=== PATIENT | female | born 1980 | race Caucasian/White ===

== ENCOUNTER 2020-11-14 16:56 | Outpatient (REF) | payer OTHER, SELFPAY | END 2020-11-14 16:57 | disposition home or self-care (01) | LOC: LBN 16:56 | PROVIDERS: PCP Family Medicine; Visit Provider Nurse Practitioner Family | DX: R35.0 Frequency of micturition (principal) | CPT/HCPCS: 87077; 87086; 87186 ==

== ENCOUNTER 2021-06-21 08:42 | Outpatient (CLI) | payer OTHER, SELFPAY ==
[2021-06-21 10:29] VITALS: BP 110/68; PULSE 78; RESP 14; TEMP 36.7; O2SAT 96
[2021-06-21 11:20] VITALS: BP 106/70; PULSE 64; RESP 14; TEMP 36.8; O2SAT 99
== END 2021-06-21 08:43 | disposition home or self-care (01) ==
LOC: INF 08:44
PROVIDERS: PCP Family Medicine; Visit Provider Family Medicine
DX: U07.1 COVID-19 (principal)
CPT/HCPCS: 96365; 96374; Q0222

== ENCOUNTER 2021-08-26 12:18 | Outpatient (REF) | payer OTHER, SELFPAY ==
--- NOTE | 2021-08-26 11:15 | PAPFT_PTH ---
PATIENT: Noemy Saul LOC: [facility]YS U#:[id number] AGE/SX: 41/F ROOM: RE08/26/[address]: SAMARIA Angela : 1980 BED: DIS: 08/26/2021 SPEC #: [id number] RECD: 08/26/21 12:51 STATUS: GARTH REQ #: [id number] NATASHA: 08/26/21 11:[address]: Staci Tomas DEPT: [facility] Cytology RECD BY: Barbi Subramanian ENTERED: 08/26/21 12:51 SP TYPE: PAPFT OTHR DR: Juana Larsen, PhD SALES DEPARTMENT MANAGER Tissues: 1 - CX/ENDOCX FOR PAP SMEARS Procedures: PAP THIN PREP/[facility] Screening HPV DNA PROBE Comments: [id number]
[2021-08-27 14:44] LABS: Chlamydia Result Negative (Negative); GC Result Negative (Negative)
== END 2021-08-26 12:19 | disposition home or self-care (01) ==
LOC: LBN 12:18
PROVIDERS: PCP Nurse Practitioner; Visit Provider Nurse Practitioner Family
DX: Z11.3 Encounter for screening for infections with a predominantly sexual mode of transmission (principal); Z12.4 Encounter for screening for malignant neoplasm of cervix; Z11.51 Encounter for screening for human papillomavirus (HPV); R87.810 Cervical high risk human papillomavirus (HPV) DNA test positive
CPT/HCPCS: 87491; 87591; 88142; 87624

== ENCOUNTER 2021-08-30 01:36 | Outpatient (CLI) | payer OTHER, SELFPAY ==
[2021-08-30 12:34] LABS: Calculated LDL 100 mg/dL (<100); Cholesterol 183 mg/dL (<200); HDL Cholesterol 61 mg/dL (40-60); Triglyceride 113 mg/dL (<150)
[2021-08-30 16:57] LABS: Hemoglobin A1C 5.1 % (<5.7)
== END 2021-08-30 01:37 | disposition home or self-care (01) ==
LOC: LBO 01:37
PROVIDERS: PCP Nurse Practitioner; Visit Provider Nurse Practitioner
DX: Z00.00 Encounter for general adult medical examination without abnormal findings (principal); Z13.6 Encounter for screening for cardiovascular disorders; Z13.1 Encounter for screening for diabetes mellitus
CPT/HCPCS: 36415; 80061; 83036

== ENCOUNTER → 2021-09-09 01:42 | Outpatient (CLI) | payer OTHER, SELFPAY ==
--- NOTE | 2021-09-09 06:45 | DI.MAMMO_ITS ---
Exam(s) MAMMO SCREENING EXAM: MAMMO SCREENING CLINICAL HISTORY: screening, Z12.39, GENERAL ADULT MEDICAL EXAMINATION, Z00.00 TECHNIQUE: Bilateral full field digital CC and MLO mammographic images were obtained with 3D tomosyn thesis and utilizing computer aided detection (CAD). COMPARISON: None. FINDINGS: Masses/Architectural Distortion: None seen. Microcalcifications: There is a tiny cluster of calcifications in the upper outer quadrant of the lef t breast. Skin Thickening/Nipple Retraction: None. IMPRESSION: 1. Tiny cluster of calcifications in the upper outer quadrant of the left breast. 2. Spot magnification views are requested for further evaluation. BI-RADS Category 0 - Assessment Incomplete: Need additional imaging evaluation Breast Density - Category C - Heterogeneously dense Breast density category C or D implies that the patient has dense breast tissue. Dense breast tissue is very common and is not abnormal but dense breast tissue can make it harder to find cancer on a ma mmogram. Also, dense breast tissue may increase their breast cancer risk. This information about the result of the mammogram report was provided to the patient to raise their awareness. Use this report when you speak with the patient about their risks for breast cancer, which includes their family hist ory. At that time, you may recommend for more screening tests (Ultrasound or MRI) as they might be us eful based on their risk. A negative radiographic report should not delay biopsy if a dominant or clinically suspicious mass is present. Up to ten percent of cancers are not identified on mammography. A negative report may reinforce clinical impression. Adenosis and dense breasts may obscure an underlying neoplasm. False positive reports average 6 to 10%. Patient will receive a letter notifying them of these results.
== END ==
PROVIDERS: PCP Nurse Practitioner; Visit Provider Nurse Practitioner
DX: Z00.00 Encounter for general adult medical examination without abnormal findings (principal); Z12.31 Encounter for screening mammogram for malignant neoplasm of breast; R92.8 Other abnormal and inconclusive findings on diagnostic imaging of breast
CPT/HCPCS: 77063; 77067

== ENCOUNTER → 2021-09-16 02:07 | Outpatient (CLI) | payer OTHER, SELFPAY ==
--- NOTE | 2021-09-16 | DI.MAMMO_ITS ---
Exam(s) MG MAMMO SCREEN CALL BACK UNI EXAM: MAMMO SCREEN CALL BACK UNI -LEFT CLINICAL HISTORY: F/U MAMMO, TINY CLUSTER OF CALCIFICATIONS UOQ LT BREAST. TECHNIQUE: Unilateral spot mammographic images obtained with 2Dand utilizing computer aided detectio n (CAD). . COMPARISON: This additional imaging was performed due to findings described on the recent screening baseline mammogram of 09/09/2021. FINDINGS: Additional mammographic views performed todayreveal this microcalcification group to be somewhat susp icious. Stereotactic biopsy is recommended IMPRESSION: Suspicious microcalcification group in the upper outer quadrant left breast. Appropriate follow-up is stereotactic biopsy. The patient was informed of these findings and recommendations by myself prior to leaving the departm ent today. BI-RADS Category 4 - Suspicious Abnormality: Biopsy should be considered Breast Density - Category C - Heterogeneously dense Breast density Category C or D implies that the patient has dense breast tissue. Dense breast tissue can make it harder to find cancer on a mammogram. Dense breast tissue is also associated with an incr eased risk of breast cancer. This information about the result of the mammogram report was provided to the patient to raise their awareness. Use this report when you speak with the patient about their risks for breast cancer, which includes their family history. At that time, you may recommend additional screening tests (Ultrasoun d or MRI) as these tests may add significant information. A negative radiographic report should not delay biopsy if a dominant or clinically suspicious mass is present. Up to ten percent of cancers are not identified on mammography. A negative report may reinforce clinical impression. Adenosis and dense breasts may obscure an underlying neoplasm. False positive reports average 6 to 10%. Patient will receive a letter notifying them of these results.
== END ==
PROVIDERS: PCP Nurse Practitioner; Visit Provider Nurse Practitioner
DX: Z12.31 Encounter for screening mammogram for malignant neoplasm of breast (principal); R92.8 Other abnormal and inconclusive findings on diagnostic imaging of breast; R92.0 Mammographic microcalcification found on diagnostic imaging of breast
CPT/HCPCS: 77063; 77067

== ENCOUNTER 2021-10-03 14:54 | Outpatient (CLI) | payer OTHER, SELFPAY ==
[2021-10-03 16:35] LABS: ALT 23 U/L (14-59); AST 15 U/L (15-37); Albumin 3.8 g/dL (3.4-5.0); Alkaline Phosphatase 57 U/L (46-116); Anion Gap 9.4 mmol/L (3-11); BUN 13 mg/dL (7-18); Bilirubin, Total 0.5 mg/dL (0.2-1.0); CO2 27.6 mmol/L (21.0-32.0); CREATININE 0.9 mg/dL (0.55-1.02); Calcium 8.8 mg/dL (8.5-10.1); Chloride 104 mmol/L (98-107); Glucose 89 mg/dL (74-106); Potassium 3.6 mmol/L (3.5-5.1); Sodium 141 mmol/L (136-145); Total Protein 7.2 g/dL (6.4-8.2)
== END 2021-10-03 14:55 | disposition home or self-care (01) ==
LOC: LBO 14:54
PROVIDERS: PCP Nurse Practitioner; Visit Provider Surgery
DX: C50.911 Malignant neoplasm of unspecified site of right female breast (principal); Z17.0 Estrogen receptor positive status [ER+]
CPT/HCPCS: 36415; 80053

== ENCOUNTER 2021-10-07 17:45 | Outpatient (CLI) | payer OTHER, SELFPAY ==
[2021-10-07 11:10] LABS: Abs Immature Grans 0.03 10^3/uL (0.0-0.06); Absolute Basophil Count 0.03 10^3/uL (0.0-0.2); Absolute Eosinophil Count 0.08 10^3/uL (0.0-0.7); Absolute Monocyte Count 0.64 10^3/uL (0.1-0.8); Absolute Neutrophil Count 5.49 10^3/uL (1.2-6.7); Basophils % 0.4; HCT 38.2 % (36.0-46.0); HGB 12.8 g/dL (11.2-15.7); Immature Grans % 0.4; Lymphocytes % 20.3; MCH 32.4 pg (27.0-33.0); MCHC 33.5 % (32.0-36.0); MCV 97 fL (80-95); MPV 10.2 fL (8.0-11.0); Monocytes % 8.1; Neutrophils % 69.8; Platelet Count 287 10^3/uL (130-400); RBC 3.95 10^6/uL (3.93-5.22); RDW 11.8 % (11.7-14.6); RDW-SD 41.1 fL; WBC 7.87 10^3/uL (4.4-10.8)
== END 2021-10-07 17:46 | disposition home or self-care (01) ==
LOC: LBO 17:46
PROVIDERS: PCP Nurse Practitioner; Visit Provider Surgery
DX: C50.911 Malignant neoplasm of unspecified site of right female breast (principal); Z17.0 Estrogen receptor positive status [ER+]
CPT/HCPCS: 36415; 85025

== ENCOUNTER 2022-07-25 08:31 | Outpatient (REF) | payer OTHER, SELFPAY | END 2022-07-25 08:32 | disposition home or self-care (01) | LOC: LBN 08:31 | PROVIDERS: PCP Nurse Practitioner Family; Visit Provider Nurse Practitioner Family | DX: R30.0 Dysuria (principal) | CPT/HCPCS: 87086 ==

== ENCOUNTER 2022-09-15 10:54 | Outpatient (REF) | payer OTHER, SELFPAY ==
--- NOTE | 2022-09-15 10:40 | PAPFT_PTH ---
PATIENT: Noemy Saul LOC: DENYS U#:[id number] AGE/SX: 42/F ROOM: RE09/15/[address]: Rosemary Domingo NP : 1980 BED: DIS: 09/15/2022 SPEC #: [id number] RECD: 09/15/22 13:18 STATUS: GARTH [place] #: [id number] NATASHA: 09/15/22 10:[address]: Chayo LY,Rosemary DEPT: [facility] Cytology RECD BY: Barbi Subramanian ENTERED: 09/15/22 13:18 SP TYPE: PAPFT OTHR DR: Ericka Us, AIR BRAKE TESTER Tissues: 1 - CX/ENDOCX FOR PAP SMEARS Procedures: PAP THIN PREP/[facility]VM Screening HPV DNA PROBE Comments: [id number]
== END 2022-09-15 10:55 | disposition home or self-care (01) ==
LOC: LBN 10:54
PROVIDERS: PCP Nurse Practitioner Family; Visit Provider Nurse Practitioner Women's Health
DX: Z12.4 Encounter for screening for malignant neoplasm of cervix (principal); Z11.51 Encounter for screening for human papillomavirus (HPV)
CPT/HCPCS: 88142; 87624

== ENCOUNTER 2022-09-16 08:30 | Day surgery (SDC) | payer OTHER, SELFPAY ==
[2022-09-16 08:45] VITALS: BP 117/86; PULSE 65; RESP 16; TEMP 36.5; O2SAT 98
--- NOTE | 2022-09-16 09:06 | W.ANESPRE ---
General Info Date of Service Date Performed: 09/16/22 Height: 5 ft 3 in Weight: 57.6 kg Body Mass Index (BMI): 22.4 Surgical Procedure: Operation Date: 09/16/22 09:20 Proposed Procedure Side Surgeon aime Gutierrez, Meds Allergies and Home Medications Allergies Allergy/AdvReac Type Severity Reaction Status Date / Time morphine Allergy Severe rash,hives, Verified 09/16/22 08:52 trouble breathing Home Medication Medication Instructions Recorded lorazepam 0.5 mg tablet 0.5 mg PO BID PRN anxiety #30 tabs 11/21/21 tamoxifen 20 mg tablet 20 mg PO DAILY 07/25/22 clindamycin phosphate 1 % topical 1 applic topical BID #60 grams 09/04/22 gel gabapentin 100 mg capsule 300 mg PO QHS 09/11/22 Current Visit Medications: Current Medications Generic Name Dose Route Start Last Admin Trade Name Freq PRN Reason Stop Dose Admin Hyoscyamine Sulfate 0.125 mg 09/16/22 06:28 Hyoscyamine 0.125 Mg Sl/Oral/Chew SL 10/16/22 06:27 DIRECTED PRN Ringer's Solution 1,000 mls @ 80 mls/hr 09/16/22 06:00 IV 10/15/22 23:59 INFUSION [facility] IV Miscellaneous Supplies 1 each 09/16/22 06:00 Iv Access IV 10/15/22 23:59 DIRECTED SPENCER Ondansetron HCl 4 mg 09/16/22 06:28 Ondansetron 4 Mg/2 Ml Vial IVP 10/16/22 06:27 Q4H PRN PRN Nausea / Vomiting Sodium Chloride 0 ml 09/16/22 06:00 Normal Saline Flush 10 Ml Syr IV 10/15/22 23:59 PRN PRN Sodium Chloride 0 ml 09/16/22 06:00 Normal Saline 10 Ml Vial IJ 10/15/22 23:59 DIRECTED PRN Sterile Water 0 ml 09/16/22 06:00 Water,Injection,Sterile 10 Ml Vial IJ 10/15/22 23:59 DIRECTED PRN PFSH Active Problems Active Problems: Problem Status Onset Code Invasive ductal carcinoma of right breast ~08/2021 C50.911 Situational anxiety F41.8 Medical History Medical History Hx of abnormal cervical Pap smear Renal calculi Medical History Comments:: 09/16/22 No BP/IV on RIGHT side Surgical History Surgical History History of bilateral tubal ligation S/P bilateral mastectomy (12/03/21) And breast reconstruction Tobacco Smoking/Tobacco Use Status: Never Passive smoking exposure: No Second hand exposure: No Alcohol Alcohol Intake: current Alcohol intake frequency: a few times a month Alcohol type: hard liquor Substance Use Substance use: Never Substance use type: does not use Prental History History Para 4 Hx # Term Pregnancies Multiple births Hx # Pregnancies Ectopic pregnancies AB induced Hx Number of Living Children AB spontaneous Vital Signs and Lab Results Vital Signs Most Recent Vital Signs in EMR: Most Recent Vital Signs Temp Pulse Resp BP Pulse Ox 36.5 C 65 16 117/86 98 09/16/22 08:45 09/16/22 08:45 09/16/22 08:45 09/16/22 08:45 09/16/22 08:45 Lab Results Blood Type / Crossmatch: No Data to Display Complete Blood Count: No Data to Display Complete Metabolic Panel: No Data to Display Liver Function Panel: No Data to Display Coagulation Panel: No Data to Display Cardiac Panel: No Data to Display Arterial Blood Gas: No Data to Display Venous Blood Gas: No Data to Display Pancreas Panel: No Data to Display Thyroid Panel: No Data to Display Infectious Disease: No Data to Display Blood Cultures: No Data to Display Toxicology Panel: No Data to Display Panel: No Data to Display Anesthesia Assessment and Plan Anesthesia History Personal History: No History of Anesthesia Complications Family History: No Family History of Anesthesia Complications Exercise Tolerance Exercise Tolerance: Metabolic Equivalents>4 Pertinent Negatives Pertinent Negatives: No Symptoms of GERD, No Major Cardiovascular Symptoms or Complaints, No Major Pulmonary Symptoms or Complaints and No History of CVA/TIA Cardiac & Pulmonary Exam Cardiac Exam: Normal S1/S2 Heart Sounds Pulmonary Exam: Clear Bilateral Breath Sounds Implantable Cardiac Device Does patient have a Pacemaker or an ICD?: No Airway Exam Known Difficult Airway: No Mallampati Class: 1 Mouth Opening: Normal (> 3cm) Thyromental Distance: Greater than 3 cm Neck Range of Motion: Full ROM Neck Circumference: Normal Teeth Condition: Normal Dentition ASA Classification ASA Score: ASA 2 Emergency Case?: No NPO Status NPO Status: NPO Clears >2 hours, Solids >8 hours Status Status: Negative HCG Anesthesia Plan Resuscitation Status: Full Code Anesthesia Technique: General Anesthesia Airway Planned: Natural Airway Monitors Used: Standard Monitors
[2022-09-16 09:09] VITALS: BMI 22.4
[2022-09-16] MEDS: Lactated Ringers 1,000 ML 80 ML IV (09:15)
[2022-09-16 10:15] VITALS: BP 115/81; PULSE 69; RESP 16; TEMP 36.2; O2SAT 98
--- NOTE | 2022-09-16 10:29 | W.ANESPOSTOP ---
Postoperative Evaluation Date, Time and Location Date Performed: 09/16/22 Time Performed: 10:30 Patient Location: Day Surgery Unit Vital Signs Most Recent Imported Vital Signs: Most Recent Vital Signs Temp Pulse Resp BP Pulse Ox 36.2 C L 69 16 115/81 98 09/16/22 10:15 09/16/22 10:15 09/16/22 10:15 09/16/22 10:15 09/16/22 10:15 Pain Score Most Recent Pain Score: Most Recent Pain Score Pain Level 0 09/16/22 10:15 Assessment Mental Status: Awake (Alert & Oriented to Patient Baseline) Airway and Respiratory Function: Patent airway with normal (patient baseline) respiratory exam Cardiovascular Function: Hemodynamically Stable Hydration Status: Adequately Hydrated Nausea & Vomiting: No Nausea or Vomiting Pain: Pt. Denies Any Pain Peripheral Nerve Block: Patient did not receive a nerve block
[2022-09-16 10:45] VITALS: BP 122/47; PULSE 57; RESP 18; TEMP 36.7; O2SAT 100
--- NOTE | 2022-09-16 11:07 | W.COLOREPORT ---
Date of service: 09/16/22 Time of Service: 15:36 Colonoscopy Report Date of procedure: 09/16/22 Pre-op diagnosis general: breast ca Post-op diagnosis procedure note: other (ext hemorrhoid ) Surgeon: Christy Gutierrez Anesthesia Type: General:No Airway Estimated blood loss (mL): 0 Pathology: none sent Complications: None Disposition: same day Prep: Miralax/Dulcolax Retraction Time: 13 Procedure Description: After informed consent was obtained the patient was taken to the procedure room and placed in a left decubitous position. Monitors were applied and a time out was done. The patients name, date of , procedure, allergies to medications and metal in their body was reviewed. The patient was then sedated. Once sedated and comfortable a rectal exam was done. External exam shows: x1 external hemorrhoid and external hemorrhoidal tag.. Internal exam revealed a normal sphincter tone and no palpable masses. The scope was then introduced and retrofelexed. No internal hemorrhoids were identified. The scope was then advanced to the cecum without difficulty. The TI and appendiceal orifice were identified. The prep was BBPS 2 in all segments for a total of 6. The scope was then slowly retracted over 13 minutes back into the rectum. There are no polyps, AVMs, or diverticula visualized today. Mucosa is pink and healthy with a normal vascular pattern. The scope was removed and the patient was woken up and taken back to Same day surgery in stable condition. The patient tolerated the procedure well and there were no immediate complications. Follow up: The patient should follow up in 10 years unless they develop changes in bowel habits or other new gastrointestinal complaints.
--- NOTE | 2022-09-16 11:09 | PDOC.DSDIS_ITS ---
Date of service: 09/16/22 Time of Service: 11:09 Discharge Plan Disposition Patient Disposition: Home Condition: Good Discharge Details Reason For Visit: colon scope Attending Provider: Christy Gutierrez Primary Care Provider: Ericka Us Meds and New Rx's Prescriptions: No Action tamoxifen 20 mg tablet 20 mg PO DAILY gabapentin 100 mg capsule 300 mg PO QHS lorazepam 0.5 mg tablet 0.5 mg PO BID PRN (Reason: anxiety) Qty: 30 0RF Rx Instructions: Take 1 tablet twice a day as needed for anxiety clindamycin phosphate 1 % gel 1 applic TP BID Qty: 60 2RF Discharge Instructions Additional Instructions: DSU Colonoscopy Post- Op Instructions Instructions for Everyone who is given Anesthesia: For your safety, please do the following for the next twenty-four (24) hours: *Do Not operate a motor vehicle (car, truck, motorcycle, etc.) *Do Not drink alcoholic beverages or use any recreational drugs for the first 24 hours or while taking pain medications. The medications in your body may have a reaction that can be dangerous. *Do Not make any important decisions or sign any important papers. Findings: Normal Follow up: Repeat in 10 years time 1. No lifting over 20 pounds or strenuous activity for the first 24 hours after your procedure. After 24 hours there are no restrictions on your activity but you may feel fatigued for a few days. 2. After you arrive home you may have a light meal and return to your normal diet as you can tolerate it without feeling sick to your stomach. 3. You may have a bloated, gaseous feeling in your belly (abdomen) after a colonoscopy. Passing gas and belching will help. Walking or lying down on your left side with your knees flexed may relieve the discomfort. Call the office at [phone] (Office) or [phone] (Hospital) right away if you notice any of the following: a.Vomiting of blood or ?coffee ground stools?. b.Rectal bleeding 1Tbsp, blood clots or continuous bleeding. c.Severe belly (abdominal) pain. d.A hard distended belly (abdomen) and an inability to pass gas. 4. Please don?t expect to have a normal BM (bowel movement) for 2-3 days after your procedure. 5. If there are questions regarding the findings of your procedure, please contact your doctor 6. If you are unable to contact your doctor with a problem, contact the hospital at [phone]. 7. Continue all your regular medications unless directed otherwise. I understand the above instructions and have no questions. Signature of Patient or Adult Escort Name of Responsible Adult Escort Signature of Nurse Date/Time Activity:: See above Diet:: See above Discharge Orders Discharge Orders: Discharge Order (Routine); Ordered 09/16/22 Ordered By: Christy Gutierrez DS: Diagnosis Discharge Diagnosis (1) Invasive ductal carcinoma of right breast: Status: Acute Asessment and Plan: The patient is seen and examined after their colonoscopy.? The patient has been able to pass gas.? They are not having abdominal pain.? They have been able to tolerate liquids and a snack.? They do not have any nausea or vomiting.? They are not having any chest pain or shortness of breath.??? They are not having any rectal bleeding. Their vital signs have been stable-see nursing notes. We discussed findings during their colonoscopy, and any biopsies that were done/polyps that were removed. The patient will be sent a letter with any biopsy results, and when to repeat the colonoscopy.-see discharge instructions. Patient was given explicit instructions to follow-up regarding colonoscopy-refer to discharge instructions.? We reviewed resumption of medications. Patient verbalized understanding and discharged in stable and satisfactory condition- See nursing notes. (2) Situational anxiety: Status: Acute
== END 2022-09-16 11:20 | disposition home or self-care (01) ==
PROVIDERS: PCP Nurse Practitioner Family; Visit Provider Surgery
PROC: 0DJD8ZZ Inspection of Lower Intestinal Tract, Via Natural or Artificial Opening Endoscopic (ICD-10-PCS; CPT 45378; principal; 2022-09-16 09:15)
DX: Z12.11 Encounter for screening for malignant neoplasm of colon; K64.4 Residual hemorrhoidal skin tags; C50.911 Malignant neoplasm of unspecified site of right female breast; Z79.899 Other long term (current) drug therapy; F41.8 Other specified anxiety disorders
CPT/HCPCS: 45378; 81025; J2001; J2250; J2405

== ENCOUNTER 2022-11-25 10:04 | Outpatient (CLI) | payer OTHER, SELFPAY ==
[2022-11-25 08:18] LABS: Abs Immature Grans 0.01 10^3/uL (0.0-0.06); Absolute Basophil Count 0.03 10^3/uL (0.0-0.2); Absolute Eosinophil Count 0.12 10^3/uL (0.0-0.7); Absolute Lymphocyte Count 1.91 10^3/uL (1.2-3.4); Absolute Monocyte Count 0.63 10^3/uL (0.1-0.8); Absolute Neutrophil Count 4.22 10^3/uL (1.2-6.7); Basophils % 0.4; Eosinophils % 1.7; HCT 37.8 % (36.0-46.0); HGB 12.9 g/dL (11.2-15.7); Immature Grans % 0.1; Lymphocytes % 27.6; MCH 32.9 pg (27.0-33.0); MCHC 34.1 % (32.0-36.0); MCV 96 fL (80-95); MPV 10.5 fL (8.0-11.0); Monocytes % 9.1; Neutrophils % 61.1; Platelet Count 265 10^3/uL (130-400); RBC 3.92 10^6/uL (3.93-5.22); RDW-SD 42.5 fL; WBC 6.92 10^3/uL (4.4-10.8)
== END 2022-11-25 10:05 | disposition home or self-care (01) ==
LOC: LBO 10:04
PROVIDERS: PCP Nurse Practitioner Family; Visit Provider Obstetrics & Gynecology
DX: Z01.818 Encounter for other preprocedural examination (principal)
CPT/HCPCS: 36415; 86850; 86900; 86901; 85025

== ENCOUNTER 2022-11-26 10:32 | Day surgery (SDC) | payer OTHER, SELFPAY ==
[2022-11-26] VITALS (11 sets, daily range): BP systolic 78–126; BP diastolic 52–81; PULSE 54–76; RESP 14–19; TEMP 36.1–36.8; O2SAT 98–100; BMI 22.9
[2022-11-26] MEDS: Lactated Ringers 1,000 ML 125 ML IV (11:45)
--- NOTE | 2022-11-26 12:57 | W.ANESPRE ---
General Info Date of Service Date Performed: 11/26/22 Height: 5 ft 3 in Weight: 58.7 kg Body Mass Index (BMI): 22.9 Surgical Procedure: Operation Date: 11/26/22 12:55 Proposed Procedure Side Surgeon p Diagnostic Laparoscopy DO gunnar Burdick Salpingectomy Laparoscopic Bilateral DO gunnar Burdick Ovarian Cystectomy Laparoscopic Right Lucia Morrow DO Meds Allergies and Home Medications Allergies Allergy/AdvReac Type Severity Reaction Status Date / Time morphine Allergy Severe rash,hives, Verified 11/26/22 10:49 trouble breathing Home Medication Medication Instructions Recorded tamoxifen 20 mg tablet 20 mg PO DAILY 07/25/22 clindamycin phosphate 1 % topical 1 applic topical BID #60 grams 09/04/22 gel gabapentin 100 mg capsule 300 mg PO QHS 09/11/22 lorazepam 0.5 mg tablet 0.5 mg PO BID PRN anxiety #30 tabs 10/15/22 Current Visit Medications: Current Medications Generic Name Dose Route Start Last Admin Trade Name Freq PRN Reason Stop Dose Admin Ringer's Solution 1,000 mls @ 125 mls/hr 11/26/22 06:00 11/26/22 11:45 IV 12/25/22 23:59 125 mls/hr INFUSION SPENCER Administration IV Miscellaneous Supplies 1 each 11/26/22 06:00 Iv Access IV 12/25/22 23:59 DIRECTED SPENCER Sodium Chloride 0 ml 11/26/22 06:00 Normal Saline Flush 10 Ml Syr IV 12/25/22 23:59 PRN PRN Sodium Chloride 0 ml 11/26/22 06:00 Normal Saline 10 Ml Vial IJ 12/25/22 23:59 DIRECTED PRN Sterile Water 0 ml 11/26/22 06:00 Water,Injection,Sterile 10 Ml Vial IJ 12/25/22 23:59 DIRECTED PRN PFSH Active Problems Active Problems: Problem Status Onset Code Invasive ductal carcinoma of right breast ~08/2021 C50.911 Situational anxiety F41.8 Medical History Medical History Hx of abnormal cervical Pap smear Renal calculi Medical History Comments:: 09/16/22 No BP/IV on RIGHT side PONV Surgical History Surgical History History of bilateral tubal ligation History of colonoscopy (~08/2022) S/P bilateral mastectomy (12/03/21) And breast reconstruction Tobacco Smoking/Tobacco Use Status: Never Passive smoking exposure: No Second hand exposure: No Alcohol Alcohol Intake: current Alcohol intake frequency: a few times a month Alcohol type: hard liquor Substance Use Substance use: Never Substance use type: does not use Prental History History Para 4 Hx # Term Pregnancies Multiple births Hx # Pregnancies Ectopic pregnancies AB induced Hx Number of Living Children AB spontaneous Vital Signs and Lab Results Vital Signs Most Recent Vital Signs in EMR: Most Recent Vital Signs Temp Pulse Resp BP Pulse Ox 36.8 C 56 L 16 126/81 99 11/26/22 10:50 11/26/22 10:50 11/26/22 10:50 11/26/22 10:50 11/26/22 10:50 Point of Care Results Point of Care Results: POC- Test(urine) Negative 11/26/22 11:43 Lab Results Blood Type / Crossmatch: Patient ABO/Rh O Negative 11/25/22 Antibody Screen NEGATIVE 11/25/22 Complete Blood Count: White Blood Count 6.92 10^3/uL (4.4-10.8) 11/25/22 08:10 Red Blood Count 3.92 10^6/uL (3.93-5.22) L 11/25/22 08:10 Hemoglobin 12.9 g/dL (11.2-15.7) 11/25/22 08:10 Hematocrit 37.8 % (36.0-46.0) 11/25/22 08:10 Platelet Count 265 10^3/uL (130-400) 11/25/22 08:10 Complete Metabolic Panel: No Data to Display Liver Function Panel: No Data to Display Coagulation Panel: No Data to Display Cardiac Panel: No Data to Display Arterial Blood Gas: No Data to Display Venous Blood Gas: No Data to Display Pancreas Panel: No Data to Display Thyroid Panel: No Data to Display Infectious Disease: No Data to Display Blood Cultures: No Data to Display Toxicology Panel: No Data to Display Panel: No Data to Display Anesthesia Assessment and Plan Anesthesia History Personal History: PONV Family History: No Family History of Anesthesia Complications Exercise Tolerance Exercise Tolerance: Metabolic Equivalents>4 Cardiac & Pulmonary Exam Cardiac Exam: Normal S1/S2 Heart Sounds Pulmonary Exam: Clear Bilateral Breath Sounds Implantable Cardiac Device Does patient have a Pacemaker or an ICD?: No Airway Exam Known Difficult Airway: No Mallampati Class: 1 Mouth Opening: Normal (> 3cm) Thyromental Distance: Greater than 3 cm Neck Range of Motion: Full ROM Neck Circumference: Normal Teeth Condition: Normal Dentition ASA Classification ASA Score: ASA 2 Emergency Case?: No NPO Status NPO Status: NPO Clears >2 hours, Solids >8 hours Status Status: Negative HCG Anesthesia Plan Resuscitation Status: Full Code Anesthesia Technique: General Anesthesia Airway Planned: Endotracheal Tube Monitors Used: Standard Monitors Preoperative Comments:: 42 yo female for dx lap. Sig PMHx: breast CA, anxiety. never smoker, occ EtOH. Previous Anes: - colo, midaz, ondans, prop, natural airway, no issues. - [facility] breast, LMA 3 - [facility] mastectomy, Mac 3 grade 1, easy mask. extremely sore throat with stretched uvula. Plan: preop AMERICA [place].
[2022-11-26] MEDS: Bupivacaine 0.5% Pres-Free 30 ML VIAL (14:43)
--- NOTE | 2022-11-26 14:51 | FALL_PTH ---
PATIENT: Noemy Saul LOC: DEEP U#:[id number] AGE/SX: 42/F ROOM: RE11/26/[address]: Lucia Morrow DO : 1980 BED: DIS: 11/26/2022 SPEC #: [id number] RECD: 11/26/22 17:17 STATUS: GARTH [facility] #: [id number] NATASHA: 11/26/22 14:[address]: Lucia Morrow DEPT: Surgical Specimen RECD BY: Barbi Subramanian ENTERED: 11/26/22 17:19 SP TYPE: Fall OTHR DR: SAMARIA Nolasco Tissues: 1 - FALLOPIAN TUBE (STERILIZATION) 2 - FALLOPIAN TUBE (STERILIZATION) Procedures: GROSS AND MICRO LEVEL 2 Comments: [id number]
--- NOTE | 2022-11-26 15:19 | PAPNONF_PTH ---
PATIENT: Noemy Saul LOC: DEEP U#:[id number] AGE/SX: 42/F ROOM: RE11/26/[address]: Lucia Morrow DO : 1980 BED: DIS: 11/26/2022 SPEC #: [id number] RECD: 11/26/22 17:35 STATUS: GARTH RE #: [id number] NATASHA: 11/26/22 15:[address]: Lucia Morrow DEPT: [facility] Cytology RECD BY: Barbi Subramanian ENTERED: 11/26/22 17:35 SP TYPE: TADEO SHORT DR: SAMARIA Nolasco Tissues: 1 - BODY FLUID CYTO(NOT S/U/N/EM)[facility] Procedures: BODY FLUID CYTO(NOT SPU/UR/NIP/ENDOM)[facility] Comments: [id number] (TOTAL VOLUME = 10 ml, SENT FRESH) (REFRIGERATED)
--- NOTE | 2022-11-26 15:28 | ROE_ITS ---
Date of service: 11/26/22 Time of Service: 15:28 Operative Note Operative Note DATE OF PROCEDURE: 11/26/22 PRE-OP DIAGNOSIS: Suspicion of right ovarian cyst, undesired fertility POST-OP DIAGNOSIS: other (3 cm right paratubal cyst) PROCEDURE: Operative laparoscopy with bilateral salpingectomy and removal of right paratubal cyst. SURGEON: Lucia Morrow ASSISTING SURGEON: Kavya Duarte ANESTHESIA TYPE: Local By Surgeon and General LMA/ETT Refer to Anesthesia Record ESTIMATED BLOOD LOSS: 5 PATHOLOGY: other (1. Left fallopian tube 2. Right fallopian tube with paratubal cyst 3. Cyst fluid for cytology) COMPLICATIONS: None Patient was transported to: PACU Patient's condition: stable Indications: Persistent simple right adnexal cyst. Undesired fertility. Ovarian cancer risk reduction Findings: Normal-appearing uterus, left fallopian tube. Right fallopian tube with 3 cm simple appearing right paratubal cyst. Normal-appearing ovaries bilaterally. Procedure Description: After full informed consent was attained patient was taken the operating suite with an IV running. General anesthesia was administered after the patient was placed in the dorsal supine position. Patient was then placed in the modified dorsolithotomy position and prepped and draped in the usual sterile fashion. Exam under anesthesia revealed a uterus midline and mobile without evidence of significant adnexal mass. At this point attention was turned to the vaginal vault where a speculum was inserted. A [employer] uterine manipulator was used for intraoperative uterine manipulation. Speculum was then removed. Attention was turned to the abdomen where quarter percent Marcaine was used to infiltrate the umbilical space. A vertical incision was made to accommodate a 10 mm sleeve and trocar. The abdomen was elevated with penetrating towel clips and a varies needle inserted. CO2 gas was used to create a pneumoperitoneum to a maximum pressure of 15 mmHg. Once pneumoperitoneum was created a bladeless 12 mm Visiport was inserted into the abdomen with direct visualization. A second and third right and left lower quadrant trocar site were placed after infiltration with cord percent Marcaine under direct visualization with a 5 mm trocar. This allowed visualization of the entire abdomen and pelvis. All structures appeared benign and atraumatic. The uterus was elevated and visualization of the left fallopian tube undertaken. The left tube and ovary are normal. Visualization of the right tube and ovary revealed a 3 cm right paratubal cyst which appears simple and normal-appearing ovary. At this point, attention was turned again to the left fallopian tube which was elevated and cautery transected. This was removed through the 10 mm port. Similar procedure was carried out on the right fallopian tube with its attached paratubal cyst. This complex was placed into an Endopouch and removed through the anterior abdominal wall. Fluid was removed from the cyst and sent for cytology. At this point, inspection of the pedicles noted hemostasis. The procedure was then terminated. Trocars were removed from the abdomen after CO2 gas was released. The fascial incision was closed using 0 Vicryl suture in the inqwie-dj-bvsny fashion at the umbilicus. The remainder of the incisions were reapproximated with 4-0 undyed Monocryl, Steri-Strips, and sterile dressings were placed. The patient was returned to the dorsal supine position, awoke from anesthesia with ease, and was taken to the postanesthesia care unit. EBL: 5 mL Complications: None apparent Pathology Left: 1. Left fallopian tube 2. Right fallopian tube with paratubal cyst 3. cyst fluid for cytology Fluids: Crystalloid per anesthesia.
[2022-11-26] MEDS: ePHEDrine 25 MG/5 ML Syringe IVP (15:48)
[2022-11-26] MEDS: fentaNYL 100 MCG/2 ML VIAL IVP (16:27)
--- NOTE | 2022-11-26 16:40 | W.ANESPOSTOP ---
Postoperative Evaluation Date, Time and Location Date Performed: 11/26/22 Time Performed: 16:40 Patient Location: PACU Vital Signs Most Recent Imported Vital Signs: Most Recent Vital Signs Temp Pulse Resp BP Pulse Ox 36.4 C L 65 16 102/66 100 11/26/22 16:37 11/26/22 16:37 11/26/22 16:37 11/26/22 16:37 11/26/22 16:37 Pain Score Most Recent Pain Score: Most Recent Pain Score Pain Level 3 11/26/22 16:37 Assessment Mental Status: Awake (Alert & Oriented to Patient Baseline) Airway and Respiratory Function: Patent airway with normal (patient baseline) respiratory exam Cardiovascular Function: Hemodynamically Stable Hydration Status: Adequately Hydrated Nausea & Vomiting: No Nausea or Vomiting Pain: Pain is tolerable per patient Peripheral Nerve Block: Patient did not receive a nerve block
[2022-11-26] MEDS: traMADol 50 MG TAB PO (17:41)
== END 2022-11-26 18:08 | disposition home or self-care (01) ==
PROVIDERS: PCP Nurse Practitioner Family; Visit Provider Obstetrics & Gynecology
PROC: (CPT 58661; 2022-11-26 12:45)
DX: Z30.2 Encounter for sterilization (principal); N83.8 Other noninflammatory disorders of ovary, fallopian tube and broad ligament
CPT/HCPCS: 58661; 58662; 88104; 88302; J0131; J1100; J2250; J2405; J2704; J3010

== ENCOUNTER 2023-04-20 14:02 | Outpatient (REF) | payer OTHER, SELFPAY | END 2023-04-20 14:03 | disposition home or self-care (01) | LOC: LBN 14:02 | PROVIDERS: PCP Nurse Practitioner Family; Visit Provider Nurse Practitioner Family | DX: N76.0 Acute vaginitis (principal) | CPT/HCPCS: 87480; 87510; 87660 ==

== ENCOUNTER 2023-04-20 15:50 | Outpatient (CLI) | payer OTHER, SELFPAY ==
[2023-04-20 14:46] LABS: Abs Immature Grans 0.03 10^3/uL (0.0-0.06); Absolute Basophil Count 0.02 10^3/uL (0.0-0.2); Absolute Eosinophil Count 0.09 10^3/uL (0.0-0.7); Absolute Lymphocyte Count 1.94 10^3/uL (1.2-3.4); Absolute Monocyte Count 0.74 10^3/uL (0.1-0.8); Absolute Neutrophil Count 6.49 10^3/uL (1.2-6.7); Basophils % 0.2; HCT 38.1 % (36.0-46.0); HGB 12.9 g/dL (11.2-15.7); Immature Grans % 0.3; Lymphocytes % 20.8; MCHC 33.9 % (32.0-36.0); MCV 95 fL (80-95); MPV 10.1 fL (8.0-11.0); Monocytes % 7.9; Neutrophils % 69.8; Platelet Count 435 10^3/uL (130-400); RBC 4.03 10^6/uL (3.93-5.22); RDW 11.5 % (11.7-14.6); RDW-SD 39.3 fL; WBC 9.31 10^3/uL (4.4-10.8)
[2023-04-20 15:35] LABS: ALT 21 U/L (14-59); AST 12 U/L (15-37); Albumin 3.4 g/dL (3.4-5.0); Alkaline Phosphatase 42 U/L (46-116); Anion Gap 10.2 mmol/L (3-11); BUN 10 mg/dL (7-18); Bilirubin, Total 0.3 mg/dL (0.2-1.0); CO2 27.8 mmol/L (21.0-32.0); CREATININE 0.9 mg/dL (0.55-1.02); Calcium 9.2 mg/dL (8.5-10.1); Chloride 104 mmol/L (98-107); Estimated GFR 80.34 (mL/min/1.73m2); Glucose 98 mg/dL (74-106); Potassium 3.8 mmol/L (3.5-5.1); Sodium 142 mmol/L (136-145); Total Protein 6.9 g/dL (6.4-8.2)
== END 2023-04-20 15:51 | disposition home or self-care (01) ==
LOC: LBO 15:50
PROVIDERS: PCP Nurse Practitioner Family; Visit Provider Nurse Practitioner Family
DX: R10.9 Unspecified abdominal pain (principal); N76.0 Acute vaginitis; R30.0 Dysuria; R50.9 Fever, unspecified
CPT/HCPCS: 36415; 80053; 85025

== ENCOUNTER 2023-12-01 12:58 | Outpatient (CLI) | payer OTHER, SELFPAY ==
[2023-12-01 11:46] LABS: ALT 22 U/L (14-59); AST 13 U/L (15-37); Albumin 3.4 g/dL (3.4-5.0); Alkaline Phosphatase 50 U/L (46-116); Anion Gap 7.8 mmol/L (3-11); BUN 12 mg/dL (7-18); Bilirubin, Total 0.54 mg/dL (0.2-1.0); CO2 29.2 mmol/L (21.0-32.0); CREATININE 0.9 mg/dL (0.55-1.02); Calcium 8.5 mg/dL (8.5-10.1); Calculated LDL 126 mg/dL (<100); Chloride 103 mmol/L (98-107); Cholesterol 218 mg/dL (<200); Estimated GFR 80.34 (mL/min/1.73m2); Glucose 92 mg/dL (74-106); HDL Cholesterol 78 mg/dL (40-60); Potassium 3.9 mmol/L (3.5-5.1); Sodium 140 mmol/L (136-145); Total Protein 6.8 g/dL (6.4-8.2); Triglyceride 74 mg/dL (<150)
[2023-12-01 19:36] LABS: Hepatitis C Ab w Rflx HCV PCR Negative (Negative)
[2023-12-01 19:44] LABS: HIV-1/2 Ag & Ab Screen Negative (Negative)
== END 2023-12-01 12:59 | disposition home or self-care (01) ==
LOC: LBO 12:58
PROVIDERS: PCP Nurse Practitioner Family; Visit Provider Nurse Practitioner Family
DX: Z00.00 Encounter for general adult medical examination without abnormal findings (principal); R23.2 Flushing; T45.1X5A Adverse effect of antineoplastic and immunosuppressive drugs, initial encounter; Z11.59 Encounter for screening for other viral diseases; Z11.4 Encounter for screening for human immunodeficiency virus [HIV]
CPT/HCPCS: 36415; 80053; 80061; 86803; 87389

== ENCOUNTER 2024-04-28 11:28 | Outpatient (REF) | payer OTHER, SELFPAY ==
--- NOTE | 2024-04-28 11:30 | ENDOMET_PTH ---
PATIENT: Noemy Saul LOC: [facility] U#:[id number] AGE/SX: 44/F ROOM: RE04/28/[address]: Lucia Morrow DO : 1980 BED: DIS: 04/28/2024 SPEC #: [id number] RECD: 04/28/24 13:04 STATUS: GARTH RE #: [id number] NATASHA: 04/28/24 11:[address]: Lucia Morrow DEPT: Surgical Specimen RECD BY: Barbi Subramanian ENTERED: 04/28/24 13:04 SP TYPE: Endomet OTHR DR: SAMARIA Nolasco Tissues: 1 - ENDOMETRIUM BX/AUDRA Procedures: GROSS AND MICRO LEVEL 4 Comments: [id number]
== END 2024-04-28 11:29 | disposition home or self-care (01) ==
LOC: LBN 11:28
PROVIDERS: PCP Nurse Practitioner Family; Visit Provider Obstetrics & Gynecology
DX: N92.0 Excessive and frequent menstruation with regular cycle (principal); D25.9 Leiomyoma of uterus, unspecified; C50.911 Malignant neoplasm of unspecified site of right female breast; N85.00 Endometrial hyperplasia, unspecified
CPT/HCPCS: 88305

== ENCOUNTER 2024-05-15 17:28 | Emergency (ER) | payer OTHER, SELFPAY ==
[2024-05-15 17:36] VITALS: BP 132/71; PULSE 87; RESP 17; TEMP 36.9; O2SAT 100
[2024-05-15 17:39] VITALS: BP 132/71; PULSE 87; RESP 17; TEMP 36.9; O2SAT 100
--- NOTE | 2024-05-15 17:42 | W.ED.GENAD ---
Discharge Plan Disposition Patient Disposition: Home Condition: Good Discharge Details Clinical Impression: URI (upper respiratory infection), Reactive airway disease Primary Care Provider: Ericka Us ED Provider: Fabio Sofia Meds and New Rx's Prescriptions: New albuterol sulfate [Ventolin HFA] 90 mcg/actuation Hfa Aerosol Inhaler 2 puff inhalation Q6H PRN PRNQty: 1 0RF Continued tamoxifen 20 mg tablet 20 mg PO DAILY gabapentin 300 mg capsule 300 mg PO QHS Qty: 90 3RF clindamycin phosphate 1 % gel 1 applic TP BID Qty: 60 2RF escitalopram oxalate 20 mg tablet 20 mg PO DAILY Qty: 90 3RF lorazepam 0.5 mg tablet 0.5 mg PO BID PRN (Reason: anxiety) Qty: 30 0RF Rx Instructions: Take 1 tablet twice a day as needed for anxiety ibuprofen 800 mg tablet 800 mg PO Q8H PRNQty: 60 1RF Discharge Instructions Instructions: Upper Respiratory Infection ED Additional Instructions: You were seen for cough and difficulty breathing/headache all likely stemming from upper respiratory virus. You may use the inhaler with spacer every 6 hours to help with cough and tightness. Try ibuprofen for headache as acetaminophen does not seem to be helping. Rest and drink plenty fluids. Follow-up with primary care next week if not improving. Return to ED for any increased trouble breathing, chest pain, neurologic change, other concerns. Referrals: Ericka Us, [employer] [Primary Care Provider] - [facility] General Mode of arrival: ambulatory. Date/Time Provider Initiated Documentation: 05/15/24 17:42. Limitations to Documentation: no limitations. Information obtained by: patient and RN notes reviewed. HPI Narrative: Patient presents to ED with 5 days of difficulty breathing and cough. She is also having bad headaches. Denies significant sinus congestion. Denies sore throat. She denies any chest pain or abdominal pain. She has had no vomiting. Does not think she has had a fever. Symptoms started out mild but have gotten worse and she feels tight and unable to take a deep breath. She is not a smoker and does not have prior history of asthma. Related Data Home Medications ?Medication ?Instructions ?Recorded ?Confirmed tamoxifen 20 mg tablet 20 mg PO DAILY 07/25/22 05/15/24 lorazepam 0.5 mg tablet 0.5 mg PO BID PRN anxiety #30 tabs 10/15/22 05/15/24 ibuprofen 800 mg tablet 800 mg PO Q8H PRN #60 tabs 11/26/22 05/15/24 clindamycin phosphate 1 % topical 1 applic topical BID #60 grams 10/07/23 05/15/24 gel escitalopram oxalate 20 mg tablet 20 mg PO DAILY #90 tabs 10/07/23 05/15/24 gabapentin 300 mg capsule 300 mg PO QHS #90 caps 10/07/23 05/15/24 albuterol sulfate 90 mcg/actuation 2 puff inhalation Q6H PRN PRN #1 05/15/24 aerosol inhaler (Ventolin HFA) inh Previous Rx's ?Medication ?Instructions ?Recorded lorazepam 0.5 mg tablet 0.5 mg PO BID PRN anxiety #30 tabs 10/15/22 ibuprofen 800 mg tablet 800 mg PO Q8H PRN #60 tabs 11/26/22 clindamycin phosphate 1 % topical 1 applic topical BID #60 grams 10/07/23 gel escitalopram oxalate 20 mg tablet 20 mg PO DAILY #90 tabs 10/07/23 gabapentin 300 mg capsule 300 mg PO QHS #90 caps 10/07/23 albuterol sulfate 90 mcg/actuation 2 puff inhalation Q6H PRN PRN #1 05/15/24 aerosol inhaler (Ventolin HFA) inh Allergies Allergy/AdvReac Type Severity Reaction Status Date / Time morphine Allergy Severe rash,hives, Verified 05/15/24 19:06 trouble breathing General Stated Complaint: RespSymp JUAN: 4 Exam Narrative Exam Narrative: Const: WDWN female in NAD. VS per triage. HEENT: NC/AT. Normal facial exam. Normal OP. Neck: Supple. Trachea midline. Lungs: Normal respiratory effort. Lungs are clear. Cor: RRR without murmur. Good radial pulses. Neuro: A+O x 3. Normal speech, mentation, gait. Cranial nerves II - XII grossly intact. No gross motor or sensory deficit. Course Vital Signs Vital signs: Vital Signs Temperature 98.5 F 05/15/24 17:36 Pulse 87 05/15/24 17:36 Respiratory Rate 17 05/15/24 17:36 Blood Pressure 132/71 05/15/24 17:36 Pulse Oximetry 100 05/15/24 17:36 Temperature 98.5 F 05/15/24 17:39 Temperature Source Temporal Artery Scan 05/15/24 17:39 Pulse 87 05/15/24 17:39 Respiratory Rate 17 05/15/24 17:39 Respiratory Effort Normal 05/15/24 17:40 Respiratory Depth Normal 05/15/24 17:40 Blood Pressure 132/71 05/15/24 17:39 Blood Pressure Position Sitting 05/15/24 17:39 Pulse Oximetry 100 05/15/24 17:39 Oxygen Delivery Method Room Air 05/15/24 17:39 Oxygen Flow Rate 0 05/15/24 17:39 Pain Level 7 05/15/24 17:39 Medical Decision Making Patient presenting to ED with 5 days of URI symptoms with increasing cough and a feeling of shortness of breath and chest tightness. Vital signs and exam are reassuring. No wheezing. Flbxp-rg-pijg flu and COVID obtained. DuoNeb given. IM ketorolac given for headache. Gegnb-xw-ahif testing is negative. Feels that she is able to take a deeper breath after DuoNeb. Headache much improved after Toradol. Had only been using acetaminophen for pain. Recommend trying ibuprofen for her headache. Will provide albuterol inhaler with spacer for presumed reactive airway related to a URI. Follow-up with primary care next week if not improving. Return precautions provided. Lab Data Lab results reviewed: Yes I reviewed the patient's lab results. PFSH All Active Problems (Updated 05/15/24 @ 22:31 by Fabio Sofia MD) Reactive airway disease (Acute) URI (upper respiratory infection) (Acute) Heavy menstrual bleeding (Acute) Hot flashes due to tamoxifen (Chronic) Acne vulgaris (Chronic) Medical History (Updated 05/15/24 @ 22:31 by Fabio Sofia MD) Uterine fibroid Generalized anxiety disorder Invasive ductal carcinoma of right breast (~08/2021) Multicentric, ER+/GA+/HER2-. S/p bilateral mastectomy. Followed by [facility] [place] Renal calculi Hx of abnormal cervical Pap smear Surgical History (Updated 08/12/23 @ 12:25 by Ericka Us NP) S/P breast reconstruction, bilateral (12/03/21) Revision 01/28/23 History of colonoscopy (09/16/22) S/P bilateral mastectomy (12/03/21) History of bilateral tubal ligation Family History (Updated 08/12/23 @ 11:25 by Ericka Us NP) Mother No problems noted. Father , of alcohol induced liver failure Prostate cancer Alcohol use disorder Liver disease Diabetes Brother No problems noted. Daughter Depression Daughter No problems noted. Daughter No problems noted. Daughter No problems noted. Maternal Grandfather No problems noted. Maternal Grandmother Dementia Paternal Grandfather Diabetes Paternal Grandmother Diabetes Social History Smoking/Tobacco Use Status: Never Second Hand Exposure: No Smoking risk assessment performed?: Yes Alcohol Intake: current Alcohol Intake frequency: a few times a month Alcohol type: hard liquor Drug use: Never Substance use type: does not use Household members: spouse, family and children Housing: house Communication Needs: None Do you need help understanding health information?: Never Pets and animals: Yes Pets and animals: dog(s) Sexually active: Yes Do you think of yourself as: straight/heterosexual Current gender identity: female What is your relationship status?: How often do you talk on the phone with friends or family?: once per week How often do you get together with friends or relatives?: once per week How often do you attend latter-day or yazdanism services?: decline to answer Panel score (0-1 are the most socially isolated patients): 1 What type of physical activity do you participate in: walking, other Details: Basketball,Hike and running Duration: 30-45 minutes/day Frequency: 5-6 times per week Do you feel safe at home: Yes Do you feel safe in your relationship?: Yes Female Reproductive History Menstrual control method: permanent sterilization History History Para 4 Hx # Term Pregnancies Multiple births Hx # Pregnancies Ectopic pregnancies AB induced Hx Number of Living Children AB spontaneous
[2024-05-15] MEDS: Ketorolac 30 MG/ML VIAL IM (18:39)
[2024-05-15] MEDS: Albuterol/Ipratropium 3 ML UPD VIAL UPD (18:39)
[2024-05-15] MEDS: Albuterol HFA 8 GM 60 PUFF INH IH (19:09)
[2024-05-15] MEDS: Inhaler, Assist Device 1 EACH MC (19:09)
[2024-05-15 19:30] VITALS: BP 132/71; PULSE 87; RESP 17; TEMP 36.9; O2SAT 100
== END 2024-05-15 19:40 | disposition home or self-care (01) ==
PROVIDERS: Emergency Provider Emergency Medicine; PCP Nurse Practitioner Family
DX: J06.9 Acute upper respiratory infection, unspecified; J45.909 Unspecified asthma, uncomplicated; R51.9 Headache, unspecified
CPT/HCPCS: 87637; 94640; 96372; 99284; 99283; J1885; J7620

== ENCOUNTER 2024-10-13 03:18 | Emergency (ER) | payer OTHER, SELFPAY ==
[2024-10-13 03:20] VITALS: BP 91/57; PULSE 70; RESP 16; TEMP 37.3; O2SAT 98
--- NOTE | 2024-10-13 03:42 | DI.CT_ITS ---
Exam(s) CT LUMBAR SPINE RECONS CT ABDOMEN PELVIS W EXAM: CT ABDOMEN PELVIS W CLINICAL HISTORY: bilateral lower abdominal pain, and lumbar back pa. TECHNIQUE: Imaging Protocol: Axial computed tomography images with coronal and sagittal reformatted images were created and reviewed CONTRAST MATERIAL: Intravenous: Omnipaque 350 Contrast volume:75 chest ml Oral: no COMPARISON: CT CT LUMBAR SPINE RECONS from 10/13/2024 FINDINGS: ABDOMEN and PELVIS: Lung Bases: No acute findings. Liver: Normal density. No suspicious mass. Gallbladder and biliary tract: No radiodense calculus. No wall thickening or pericholecystic fluid. No biliary dilation. Pancreas: Normal density. No abnormal calcifications or inflammatory process. No evidence of mass. Spleen: Normal. Kidneys: Normal size, contour and axis. No radiodense stones. No obstructive uropathy. No suspicious masses seen. Adrenal glands: No masses seen. Vasculature: Abdominal aorta non-dilated. Soft tissues: Unremarkable. Bladder: No gross wall thickening. No calculi.No focal mass. Bowel: No obstruction. No bowel wall thickening. Appendix normal. Peritoneal cavity: Trace free fluid in the pelvis, physiologic.. No focal collection. No mesenteric inflammatory response. No free air. Mild narrowing of the L5-S1 disc space. The remaining disc spaces are maintained. Small central disc protrusion with mild effacement of the anterior CSF space. No neural foraminal narrowing. Bones: Unremarkable for age. No evidence of fracture. The remaining disc spaces are maintained. Reproductive organs: Uterine fibroid. Collapsing follicle of the right ovary. Lymph nodes: No pathologically enlarged lymph nodes. IMPRESSION:: No acute abnormality in the abdomen or pelvis. No acute abnormality in the lumbar spine. Degenerative disc changes with small central disc protrusion at L5-S1. The preliminary [facility] report was reviewed. RADIATION DOSE DELIVERED: 197.39mGy.cm Total DLP DATA REPOSITORY: All CT scans at this facility are submitted to the National Radiology Data Registry (NRDR) Dose Index Registry (DIR) with the [employer] ([employer]). RADIATION OPTIMIZATION: All CT scans at this facility use at least one of these dose optimization techniques: automated exposure control; mA and/or kV adjustment per patient size (includes targeted exams where dose is matched to clinical indication); or iterative reconstruction.
--- NOTE | 2024-10-13 03:47 | W.ED.GENAD ---
Discharge Plan Disposition Patient Disposition: Home Condition: Good Discharge Details Clinical Impression: Ruptured cyst of ovary Primary Care Provider: Ericka Us ED Provider: Jon Henriquez Home Meds and New Rx's Prescriptions: No Action tamoxifen 20 mg tablet 20 mg PO DAILY gabapentin 300 mg capsule 300 mg PO QHS Qty: 90 3RF escitalopram oxalate 20 mg tablet 20 mg PO DAILY Qty: 90 3RF lorazepam 0.5 mg tablet 0.5 mg PO BID PRN (Reason: anxiety) Qty: 30 0RF Rx Instructions: Take 1 tablet twice a day as needed for anxiety clindamycin phosphate 1 % gel 1 applic TP BID Qty: 60 2RF ibuprofen 800 mg tablet 800 mg PO Q8H PRNQty: 60 1RF albuterol sulfate [Ventolin HFA] 90 mcg/actuation Hfa Aerosol Inhaler 2 puff inhalation Q6H PRN PRNQty: 1 0RF Discharge Instructions Instructions: Oxycodone, Ovarian Cyst ED Additional Instructions: At this time it appears that you have had a ruptured ovarian cyst, and in combination with your known fibroids, this is likely causing the symptomatology and pain that you are having. Please use a heating pad to help with your pain, take Tylenol and Motrin every 6 hours. Take the oxycodone tablets that you were given only as needed for breakthrough pain. If you notice any worsening of your symptoms, or any new symptoms such as vomiting, diarrhea, fever, chills, shortness of breath, chest pain, numbness, weakness, or fainting , please return immediately to the emergency department for reevaluation. Please follow up with your primary care provider as soon as possible for reassessment and reevaluation. As always, it was a pleasure participating in your medical care today. Referrals: Ericka Us NP [Primary Care Provider, Medicine] HPI General Date/Time Provider Initiated Documentation: 10/13/24 03:30. HPI Narrative: 44-year-old female with a past medical history of previous Breast cancer with bilateral mastectomy currently on tamoxifen, previous tubal ligation, previous kidney stones, presents today for abdominal pain and back pain. Patient states that about 3 days ago she developed mild back achiness, and bilateral flank pain with the right being worse than the left. It has gradually worsened over the last 72 hours, she has had nausea but no vomiting. No vaginal discharge, no urinary frequency or hematuria. She has taken Tylenol and ibuprofen without any significant improvement. She denies fever or chills. She denies chest pain or shortness of breath. She states that this feels different than previous kidney stones. No other complaints at this time, no other modifying factors. Related Data Home Medications ?Medication ?Instructions ?Recorded ?Confirmed tamoxifen 20 mg tablet 20 mg PO DAILY 07/25/22 10/13/24 lorazepam 0.5 mg tablet 0.5 mg PO BID PRN anxiety #30 tabs 10/15/22 10/13/24 ibuprofen 800 mg tablet 800 mg PO Q8H PRN #60 tabs 11/26/22 10/13/24 escitalopram oxalate 20 mg tablet 20 mg PO DAILY #90 tabs 10/07/23 10/13/24 gabapentin 300 mg capsule 300 mg PO QHS #90 caps 10/07/23 10/13/24 albuterol sulfate 90 mcg/actuation 2 puff inhalation Q6H PRN PRN #1 05/15/24 10/13/24 aerosol inhaler (Ventolin HFA) inh clindamycin phosphate 1 % topical 1 applic topical BID #60 grams 08/24/24 10/13/24 gel Previous Rx's ?Medication ?Instructions ?Recorded lorazepam 0.5 mg tablet 0.5 mg PO BID PRN anxiety #30 tabs 10/15/22 ibuprofen 800 mg tablet 800 mg PO Q8H PRN #60 tabs 11/26/22 escitalopram oxalate 20 mg tablet 20 mg PO DAILY #90 tabs 10/07/23 gabapentin 300 mg capsule 300 mg PO QHS #90 caps 10/07/23 albuterol sulfate 90 mcg/actuation 2 puff inhalation Q6H PRN PRN #1 05/15/24 aerosol inhaler (Ventolin HFA) inh clindamycin phosphate 1 % topical 1 applic topical BID #60 grams 08/24/24 gel Allergies Allergy/AdvReac Type Severity Reaction Status Date / Time morphine Allergy Severe rash,hives, Verified 10/13/24 03:28 trouble breathing General Stated Complaint: Nk/Back Pain JUAN: 3 Exam Narrative Exam Narrative: 1.Const: Well-nourished, Well-developed, appearing stated age 2.Eyes: PERRL, no conjunctival injection, and symmetrical lids. 3.ENT: Atraumatic external nose and ears. Moist MM. Neck: Symmetric, trachea midline, No thyromegaly. 4.CVS: +S1/S2, Peripheral pulses 2+ and equal in all extremities. Brisk capillary refill in all extremities. 5.RESP: Unlabored respiratory effort. Clear to auscultation bilaterally. No wheezes rales or rhonchi 6.GI: Soft, nondistended, no guarding or rebound. Mild achiness and tenderness in the lower abdomen bilaterally. No pain at McBurney's point focally though. Mild CVA tenderness bilaterally in the lower costovertebral angles. 7.MSK: Normocephalic/Atraumatic, Extremities w/o deformity or ttp No cyanosis or clubbing, Normal movement of all extremities. No saddle anesthesia, normal strength in the lower extremities bilaterally. Mild subjective achiness in the midline area of the lower lumbar spine, but no reproducible tenderness on palpation. No step-off. 8.Skin: Warm, Dry. No rashes or lesions. 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 Sensation grossly intact, no focal neurologic deficits. 10.Psych: (AAO) x3. Appropriate mood and affect Course Vital Signs Vital signs: Vital Signs Temperature 37.3 C 10/13/24 03:20 Pulse 70 10/13/24 03:20 Respiratory Rate 16 10/13/24 03:20 Blood Pressure 91/57 L 10/13/24 03:20 Pulse Oximetry 98 10/13/24 03:20 Temperature 37.3 C 10/13/24 03:20 Temperature Source Tympanic 10/13/24 03:20 Pulse 70 10/13/24 03:20 Respiratory Rate 16 10/13/24 03:20 Blood Pressure 91/57 L 10/13/24 03:20 Blood Pressure Position Sitting 10/13/24 03:20 Pulse Oximetry 98 10/13/24 03:20 Oxygen Delivery Method Room Air 10/13/24 03:20 Oxygen Flow Rate 0 10/13/24 03:20 Pain Level 8 10/13/24 03:28 Medical Decision Making 44-year-old female with a past medical history of previous Breast cancer with bilateral mastectomy currently on tamoxifen, previous tubal ligation, previous kidney stones, presents today for abdominal pain and back pain. Patient states that about 3 days ago she developed mild back achiness, and bilateral flank pain with the right being worse than the left. It has gradually worsened over the last 72 hours, she has had nausea but no vomiting. No vaginal discharge, no urinary frequency or hematuria. She has taken Tylenol and ibuprofen without any significant improvement. She denies fever or chills. She denies chest pain or shortness of breath. She states that this feels different than previous kidney stones. No other complaints at this time, no other modifying factors. Physical exam demonstrates mild lower abdominal pain bilaterally, mild CVA tenderness bilaterally, and mid lower lumbar achiness. Differential is broad. No IV drug use or fever or chills to suggest spinal abscess. No trauma to suggest fracture. No vaginal discharge or urinary components to suggest UTI or kidney stone or uterine inflammation. However differential does include appendicitis, diverticulitis, mesenteric adenitis, musculoskeletal spasm, fibroid, amongst other etiologies. Will get CT imaging, check urine, treat pain with NSAIDs, monitor closely and reassess. 6:43 AM Laboratory workup has returned, no white count bandemia or left shift. Electrolytes normal, renal function normal, Lipase normal. Urinalysis shows no blood or infection. Patient's pain was not improved with NSAID therapy. IV Dilaudid was administered and she had notable improvement of pain with this. CT scan shows evidence to suggest a recently ruptured 2 cm right ovarian cyst with a small amount of pelvic fluid, as well as some fibroids. I do suspect that these are the components that are bringing about her current symptomatology. On reassessment exam shows no evidence of acute surgical abdomen. She feels comfortable going home. With the absence of torsion, no evidence of significant hemorrhage, and her being hemodynamically stable I do feel that discharge is appropriate. We will give a few oxycodone tablets for home use, as she is notable rash with morphine. She has tolerated oxycodone well before in the past. Will recommend continued NSAID therapy, heating pads, and close follow-up. Discussed red flags for which to return I have extensively reviewed the treatment plan and discharge instructions with the patient. I have addressed all patient concerns at this time. The patient was made aware of what symptoms to monitor for that would warrant a return to the emergency department. Discussed the plan with the patient, they demonstrate verbal understanding and agreement with our assessment and plan at this time. The documentation in this chart was dictated using [employer] dictation software. Please excuse any dictation errors. FINDINGS: Liver: Normal. No mass. Gallbladder and biliary ducts: Normal. No calcified stones. No ductal dilation. Pancreas: Normal. No ductal dilation. Spleen: Normal. No splenomegaly. Adrenal glands: Normal. No mass. Kidneys and ureters: Normal. No hydronephrosis. Stomach and bowel: Unremarkable. No obstruction. No mucosal thickening. Appendix: No evidence of appendicitis. Intraperitoneal space: Trace free fluid within the pelvis, likely physiologic in nature. Vasculature: Unremarkable. No abdominal aortic aneurysm. Lymph nodes: Unremarkable. No enlarged lymph nodes. Urinary bladder: Unremarkable as visualized. Reproductive: The uterus is mildly enlarged and lobular in contour, suggestive of fibroids. DONA LIND Preliminary Radiology Report SHIRT SEWER (QA) DISCREPANCY? If there is a discrepancy between the preliminary and final interpretation, please notify [email or web address] via [email or web address]. If you do not have access to our QA portal, call our QA team at [phone] CONFIDENTIALITY STATEMENT This report is intended only for the use of the referring physician, and only in accordance with law, If you received this in error, call [phone] Page 2 of 2 Bones/joints: Unremarkable. No acute fracture. Soft tissues: Unremarkable. IMPRESSION: No acute findings. FINDINGS: Bones/joints: No acute fracture. Normal alignment. Disc bulging at L5-S1 with suspected central disc herniation mildly narrowing the central canal No severe spinal canal stenosis. No significant neural foraminal narrowing. Soft tissues: Right ovarian cyst partially visualized measuring 2 cm Small pelvic fluid partially visualized IMPRESSION: Degenerative changes at L5-S1 with small central disc herniation suspected mildly narrowing the central canal Recently ruptured 2 cm right ovarian cyst and small pelvic fluid Thank you for allowing us to participate in the care of your patient. 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 S/p bilateral mastectomy. Followed by [facility] [place] Renal calculi Hx of abnormal cervical Pap smear Surgical History S/P breast reconstruction, bilateral (12/03/21) Revision 01/28/23 History of colonoscopy (09/16/22) S/P bilateral mastectomy (12/03/21) History of bilateral tubal ligation Family History Mother No problems noted. Father , of alcohol induced liver failure Prostate cancer Alcohol use disorder Liver disease Diabetes Brother No problems noted. Daughter Depression Daughter No problems noted. Daughter No problems noted. Daughter No problems noted. Maternal Grandfather No problems noted. Maternal Grandmother Dementia Paternal Grandfather Diabetes Paternal Grandmother Diabetes Social History Smoking/Tobacco Use Status: Never Second Hand Exposure: No Smoking risk assessment performed?: Yes Alcohol Intake: current Alcohol Intake frequency: a few times a month Alcohol type: hard liquor Drug use: Never Substance use type: does not use Household members: spouse, family and children Housing: house Communication Needs: None Do you need help understanding health information?: Never Pets and animals: Yes Pets and animals: dog(s) Sexually active: Yes Do you think of yourself as: straight/heterosexual Current gender identity: female What is your relationship status?: How often do you talk on the phone with friends or family?: once per week How often do you get together with friends or relatives?: once per week How often do you attend confucianist or mandaeism services?: decline to answer Panel score (0-1 are the most socially isolated patients): 1 What type of physical activity do you participate in: walking, other Details: Basketball,Hike and running Duration: 30-45 minutes/day Frequency: 5-6 times per week Do you feel safe at home: Yes Do you feel safe in your relationship?: Yes Female Reproductive History Menstrual control method: permanent sterilization History History Para 4 Hx # Term Pregnancies Multiple births Hx # Pregnancies Ectopic pregnancies AB induced Hx Number of Living Children AB spontaneous
[2024-10-13 03:54] LABS: Glucose Negative (Negative)
[2024-10-13] MEDS: Ondansetron 4 MG/2 ML VIAL IVP (03:54)
[2024-10-13] MEDS: Lactated Ringers 1,000 ML 1000 ML IV (03:54)
[2024-10-13 03:55] LABS: Abs Immature Grans 0.01 10^3/uL (0.0-0.06); HCT 40.5 % (36.0-46.0); HGB 13.6 g/dL (11.2-15.7); Immature Grans % 0.2 %; MCH 32.1 pg (27.0-33.0); MCHC 33.6 % (32.0-36.0); MCV 96 fL (80-95); MPV 10.4 fL (8.0-11.0); Platelet Count 288 10^3/uL (130-400); RBC 4.24 10^6/uL (3.93-5.22); RDW 11.9 % (11.7-14.6); RDW-SD 41.2 fL; WBC 6.52 10^3/uL (4.4-10.8)
[2024-10-13] MEDS: ACETAMINOPHEN 1,000 MG/100 ML BAG 400 MG (03:55)
[2024-10-13] MEDS: Ketorolac 15 MG/ML VIAL IVP (03:55)
[2024-10-13 04:25] LABS: ALT 20 U/L (14-59); AST 17 U/L (15-37); Albumin 3.7 g/dL (3.4-5.0); Alkaline Phosphatase 48 U/L (46-116); Anion Gap 7.9 mmol/L (3-11); BUN 17 mg/dL (7-18); Bilirubin, Total 0.5 mg/dL (0.2-1.0); CO2 28.1 mmol/L (21.0-32.0); Calcium 8.8 mg/dL (8.5-10.1); Chloride 105 mmol/L (98-107); Estimated GFR 79.85 (mL/min/1.73m2); Glucose 117 mg/dL (74-106); Potassium 3.7 mmol/L (3.5-5.1); Sodium 141 mmol/L (136-145); Total Protein 7.1 g/dL (6.4-8.2)
[2024-10-13] MEDS: Omnipaque 350 MG/ML 100 ML BTL 75 ML IJ (04:28)
[2024-10-13] MEDS: Normal Saline - Diluent 50 ML VIAL IJ (04:29)
[2024-10-13 04:33] LABS: Lipase 50 U/L (<78)
[2024-10-13] MEDS: HYDROmorphone 2 MG/ML SYR 0.5 MG IVP ×2 (04:42→07:00)
[2024-10-13] MEDS: HYDROmorphone 2 MG/ML SYR 1 MG IVP (05:57)
--- NOTE | 2024-10-13 06:02 | DI.VRAD_ITS ---
PROCEDURE INFORMATION: Exam: CT Abdomen And Pelvis With Contrast Exam date and time: 10/13/2024 4:03 AM Age: 44 years old Clinical indication: Localized; Bilateral lower abdominal pain, and lumbar back pain TECHNIQUE: Imaging protocol: Computed tomography of the abdomen and pelvis with contrast. Radiation optimization: All CT scans at this facility use at least one of these dose optimization techniques: automated exposure control; mA and/or kV adjustment per patient size (includes targeted exams where dose is matched to clinical indication); or iterative reconstruction. Contrast material: [id number]; Contrast volume: 75 ml; Contrast route: INTRAVENOUS (IV); COMPARISON: US PELVIS TRANSVAGINAL 08/25/2024 9:17 AM FINDINGS: Liver: Normal. No mass. Gallbladder and biliary ducts: Normal. No calcified stones. No ductal dilation. Pancreas: Normal. No ductal dilation. Spleen: Normal. No splenomegaly. Adrenal glands: Normal. No mass. Kidneys and ureters: Normal. No hydronephrosis. Stomach and bowel: Unremarkable. No obstruction. No mucosal thickening. Appendix: No evidence of appendicitis. Intraperitoneal space: Trace free fluid within the pelvis, likely physiologic in nature. Vasculature: Unremarkable. No abdominal aortic aneurysm. Lymph nodes: Unremarkable. No enlarged lymph nodes. Urinary bladder: Unremarkable as visualized. Reproductive: The uterus is mildly enlarged and lobular in contour, suggestive of fibroids. Bones/joints: Unremarkable. No acute fracture. Soft tissues: Unremarkable. IMPRESSION: No acute findings. Dictated and Authenticated by: Derrell Gordon MD. Orderin Florence Webb MD
--- NOTE | 2024-10-13 06:33 | DI.VRAD_ITS ---
PROCEDURE INFORMATION: Exam: CT Lumbar Spine Without Contrast Exam date and time: 10/13/2024 4:03 AM Age: 44 years old Clinical indication: Low back pain; Lower lumbar pain TECHNIQUE: Imaging protocol: Computed tomography of the lumbar spine without contrast. Radiation optimization: All CT scans at this facility use at least one of these dose optimization techniques: automated exposure control; mA and/or kV adjustment per patient size (includes targeted exams where dose is matched to clinical indication); or iterative reconstruction. COMPARISON: US PELVIS TRANSVAGINAL 08/25/2024 9:17 AM FINDINGS: Bones/joints: No acute fracture. Normal alignment. Disc bulging at L5-S1 with suspected central disc herniation mildly narrowing the central canal No severe spinal canal stenosis. No significant neural foraminal narrowing. Soft tissues: Right ovarian cyst partially visualized measuring 2 cm Small pelvic fluid partially visualized IMPRESSION: Degenerative changes at L5-S1 with small central disc herniation suspected mildly narrowing the central canal Recently ruptured 2 cm right ovarian cyst and small pelvic fluid Dictated and Authenticated by: Andrés Winston MD. Orderin Florence Webb MD
[2024-10-13 07:01] VITALS: BP 103/63; PULSE 63; RESP 16; O2SAT 97
== END 2024-10-13 07:01 | disposition home or self-care (01) ==
PROVIDERS: Emergency Provider Student in an Organized Health Care Education/Training Program; PCP Nurse Practitioner Family
DX: N83.201 Unspecified ovarian cyst, right side (principal); D25.9 Leiomyoma of uterus, unspecified; Z85.3 Personal history of malignant neoplasm of breast; Z90.13 Acquired absence of bilateral breasts and nipples; Z13.810 Encounter for screening for upper gastrointestinal disorder
CPT/HCPCS: 36415; 80053; 81025; 83690; 96361; 96374; 96375; 96376; 99285; 74177; 81003; 85025; J0131; J1171; J1885; J2405; J3490

== ENCOUNTER 2024-10-31 04:31 | Outpatient (CLI) | payer OTHER, SELFPAY ==
[2024-10-31 08:27] LABS: Abs Immature Grans 0.03 10^3/uL (0.0-0.06); HCT 37.1 % (36.0-46.0); HGB 12.6 g/dL (11.2-15.7); Immature Grans % 0.4 %; MCH 32.0 pg (27.0-33.0); MCHC 34.0 % (32.0-36.0); MCV 94 fL (80-95); MPV 9.9 fL (8.0-11.0); Platelet Count 297 10^3/uL (130-400); RBC 3.94 10^6/uL (3.93-5.22); RDW 11.5 % (11.7-14.6); RDW-SD 40.1 fL; WBC 8.18 10^3/uL (4.4-10.8)
== END 2024-10-31 04:32 | disposition home or self-care (01) ==
LOC: LBO 04:31
PROVIDERS: PCP Nurse Practitioner Family; Visit Provider Obstetrics & Gynecology
DX: Z01.818 Encounter for other preprocedural examination (principal)
CPT/HCPCS: 36415; 86850; 86900; 86901; 85025

== ENCOUNTER 2024-11-02 06:16 | Observation (INO) | payer OTHER, SELFPAY ==
[2024-11-02] VITALS (35 sets, daily range): BP systolic 100–125; BP diastolic 49–89; PULSE 54–653; RESP 12–23; TEMP 36.4–37; O2SAT 2–99; BMI 23.5
[2024-11-02] MEDS: Lactated Ringers 1,000 ML 125 ML IV ×3 (07:05→20:40)
--- NOTE | 2024-11-02 07:34 | W.ANESPRE ---
General Info Date of Service Date Performed: 11/02/24 Height: 5 ft 3 in Weight: 60.3 kg Body Mass Index (BMI): 23.5 Surgical Procedure: Operation Date: 11/02/24 07:40 Proposed Procedure Side Surgeon p Hysterectomy Vaginal Laparoscopic Assist, Bi-Lat Salpingoopherectomy, Cystoscopy Lucia Morrow DO Meds Allergies and Home Medications Allergies Allergy/AdvReac Type Severity Reaction Status Date / Time morphine Allergy Severe rash,hives, Verified 11/02/24 06:28 trouble breathing Home Medication ?Medication ?Instructions ?Recorded tamoxifen 20 mg tablet 20 mg PO DAILY 07/25/22 lorazepam 0.5 mg tablet 0.5 mg PO BID PRN anxiety #30 tabs 10/15/22 ibuprofen 800 mg tablet 800 mg PO Q8H PRN #60 tabs 11/26/22 escitalopram oxalate 20 mg tablet 20 mg PO DAILY #90 tabs 10/07/23 gabapentin 300 mg capsule 300 mg PO QHS #90 caps 10/07/23 albuterol sulfate 90 mcg/actuation 2 puff inhalation Q6H PRN PRN #1 05/15/24 aerosol inhaler (Ventolin HFA) inh clindamycin phosphate 1 % topical 1 applic topical BID #60 grams 08/24/24 gel Current Visit Medications: Current Medications Generic Name Dose Route Start Last Admin Trade Name Freq PRN Reason Stop Dose Admin Ringer's Solution 1,000 mls @ 125 mls/hr 11/02/24 06:00 11/02/24 07:05 IV 11/02/24 23:59 125 mls/hr INFUSION SPENCER Administration Cefazolin Sodium/Dextrose 2 gm in 50 mls @ 100 mls/hr 11/02/24 06:00 Ancef Duplex IVPB 11/02/24 23:59 PREOP SPENCER IV Miscellaneous Supplies 1 each 11/02/24 06:00 Iv Access IV 11/02/24 23:59 DIRECTED SPENCER Sodium Chloride 0 ml 11/02/24 06:00 Normal Saline Flush 10 Ml Syr IV 11/02/24 23:59 PRN PRN Sodium Chloride 0 ml 11/02/24 06:00 Normal Saline 10 Ml Vial IJ 11/02/24 23:59 DIRECTED PRN Sterile Water 0 ml 11/02/24 06:00 Water,Injection,Sterile 10 Ml Vial IJ 11/02/24 23:59 DIRECTED PRN [facility] Active Problems Active Problems: Problem Status Onset Code Ruptured cyst of ovary Acute N83.209 Heavy menstrual bleeding Acute N92.0 Hot flashes due to tamoxifen Chronic R23.2, T45.1X5A Acne vulgaris Chronic L70.0 Medical History Medical History Uterine fibroid Generalized anxiety disorder Invasive ductal carcinoma of right breast (~08/2021) Multicentric, ER+/AL+/HER2-. S/p bilateral mastectomy. Followed by [facility] [place] Renal calculi Hx of abnormal cervical Pap smear Medical History Comments:: 09/16/22 No BP/IV on RIGHT side PONV usually happens. Pt. reports trouble with tube put in throat at [facility] [place] Surgical History Surgical History History of cystoscopy with lithrotrispy S/P breast reconstruction, bilateral (12/03/21) Revision 01/28/23 History of colonoscopy (09/16/22) S/P bilateral mastectomy (12/03/21) History of bilateral tubal ligation Tobacco Smoking/Tobacco Use Status: Never Passive smoking exposure: No Second hand exposure: No Alcohol Alcohol Intake: current Alcohol intake frequency: a few times a month Alcohol type: hard liquor Substance Use Substance use: Never Substance use type: does not use Details: alcohol: t-1, 2 drinks Prental History History Para 4 Hx # Term Pregnancies Multiple births Hx # Pregnancies Ectopic pregnancies AB induced Hx Number of Living Children AB spontaneous Vital Signs and Lab Results Vital Signs Most Recent Vital Signs in EMR: Most Recent Vital Signs Temp Pulse Resp BP Pulse Ox 36.6 C 73 18 111/89 98 11/02/24 06:38 11/02/24 06:38 11/02/24 06:38 11/02/24 06:38 11/02/24 06:38 Point of Care Results Point of Care Results: POC- Test(urine) Negative 11/02/24 06:57 Lab Results Blood Type / Crossmatch: Antibody Screen NEGATIVE 10/31/24 Complete Blood Count: WBC, (4.4-10.8) 8.18 10^3/uL 10/31/24, 08:18 RBC, (3.93-5.22) 3.94 10^6/uL 10/31/24, 08:18 Hgb, (11.2-15.7) 12.6 g/dL 10/31/24, 08:18 Hct, (36.0-46.0) 37.1 % 10/31/24, 08:18 Plt Count, (130-400) 297 10^3/uL 10/31/24, 08:18 Complete Metabolic Panel: Sodium, (136-145) 141 mmol/L 10/13/24, 03:47 Potassium, (3.5-5.1) 3.7 mmol/L 10/13/24, 03:47 Chloride, (98-107) 105 mmol/L 10/13/24, 03:47 Carbon Dioxide, (21.0-32.0) 28.1 mmol/L 10/13/24, 03:47 BUN, (7-18) 17 mg/dL 10/13/24, 03:47 Creatinine, (0.55-1.02) 0.9 mg/dL 10/13/24, 03:47 Est GFR (CKD-EPI 2020), (mL/min/1.73m2) 79.85 10/13/24, 03:47 Calcium, (8.5-10.1) 8.8 mg/dL 10/13/24, 03:47 Albumin, (3.4-5.0) 3.7 g/dL 10/13/24, 03:47 Glucose, (74-106) 117 mg/dL H 10/13/24, 03:47 Liver Function Panel: ALT, (14-59) 20 U/L 10/13/24, 03:47 AST, (15-37) 17 U/L 10/13/24, 03:47 Pancreas Panel: Lipase, (<78) 50 U/L 10/13/24, 03:47 Anesthesia Assessment and Plan Anesthesia History Personal History: PONV Family History: No Family History of Anesthesia Complications Exercise Tolerance Exercise Tolerance: Metabolic Equivalents>4 Pertinent Negatives Pertinent Negatives: No Symptoms of GERD Cardiac & Pulmonary Exam Cardiac Exam: Normal S1/S2 Heart Sounds Pulmonary Exam: Clear Bilateral Breath Sounds Implantable Cardiac Device Does patient have a Pacemaker or an ICD?: No Airway Exam Known Difficult Airway: No Mallampati Class: 1 Mouth Opening: Normal (> 3cm) Thyromental Distance: Greater than 3 cm Neck Range of Motion: Full ROM Neck Circumference: Normal Teeth Condition: Normal Dentition ASA Classification ASA Score: ASA 2 Emergency Case?: No NPO Status NPO Status: NPO Clears >2 hours, Solids >8 hours Status Status: Not Relevant due to Medical History Anesthesia Plan Resuscitation Status: Full Code Anesthesia Technique: General Anesthesia Airway Planned: Endotracheal Tube Monitors Used: Standard Monitors
[2024-11-02] MEDS: ceFAZolin 2 GM/50 ML BAG IVPB (08:14)
[2024-11-02] MEDS: Bupivacaine 0.5% Pres-Free 30 ML VIAL (08:38)
--- NOTE | 2024-11-02 09:46 | UTER_PTH ---
PATIENT: Noemy Saul LOC: U#:[id number] AGE/SX: 44/F ROOM: 216 RE11/02/[address]: Lucia Morrow DO : 1980 BED: A DIS: 11/03/2024 SPEC #: [id number] RECD: 11/02/24 12:52 STATUS: SOUT REQ #: [id number] NATASHA: 11/02/24 09:[address]: Lucia Morrow DEPT: Surgical Specimen RECD BY: Barbi Subramanian ENTERED: 11/02/24 12:59 SP TYPE: UTER OTHR DR: SAMARIA Nolasco Tissues: 1 - UTERUS W OR W/O OVARIES(NOT TUMOR/PROLAPSE) Procedures: GROSS AND MICRO LEVEL 5 Comments: [id number]
--- NOTE | 2024-11-02 10:27 | W.PM.OP ---
Operative Note Operative Note PRE-OP DIAGNOSIS: Heavy menses, ER/IL positive breast cancer, pelvic pain POST-OP DIAGNOSIS: same PROCEDURE: Laparoscopically assisted vaginal hysterectomy with bilateral salpingo-oophorectomy and cystoscopy SURGEON: Lucia Morrow ASSISTING SURGEON: Richa Marsh ANESTHESIA TYPE: General LMA/ETT Refer to Anesthesia Record ESTIMATED BLOOD LOSS: 140 PATHOLOGY: other (Uterus, cervix, bilateral ovaries) COMPLICATIONS: None Patient was transported to: PACU Patient's condition: stable Indications: Ongoing heavy menstrual bleeding, pelvic pain, history of ER/IL positive breast cancer, known uterine fibroid Findings: Normal-appearing ovaries. Surgical absence of fallopian tubes. 3 cm posterior fundal fibroid, intramural. No evidence of intra-abdominal pathology or trauma. Atraumatic bladder with appropriately functioning ureters bilaterally Procedure Description: After full informed consent was obtained, patient was taken the operating suite with an IV running. She was placed in dorsal supine position and endotracheal intubation performed for the administration of general anesthesia with ease. She was then placed in the modified dorsal lithotomy position in [facility] stirrups and prepped and draped in the usual sterile fashion. Pneumatic compression stockings were used for DVT prophylaxis. She received 2 g of Ancef for surgical site infection prophylaxis. Rutledge catheter was inserted for continuous bladder drainage. A timeout was held. Exam under anesthesia revealed a uterus that was midline and mobile and slightly bulky at approximately 6 to 8 weeks size. There was no evidence of adnexal mass. At this point, attention was turned to the vaginal vault where speculum was inserted and the cervix identified. A single-tooth tenaculum was used to grasp the anterior lip of the cervix for stabilization and the cervical os dilated to the point that a ZUMI uterine manipulator could be placed for uterine manipulation and elevation throughout the procedure. At this point the tenaculum was removed as was the speculum. Attention was then turned to the abdomen where half percent Marcaine was used to infiltrate at the umbilicus. A vertical incision was made at the umbilicus and sharp towel clamps used to elevate the anterior wall of the abdomen. A Veress needle was inserted directly into the abdomen and pneumoperitoneum created with CO2 gas to a maximum pressure of 15 mmHg. Once pneumoperitoneum was created the Veress needle was removed and a 12 mm bladeless trocar, Optiview, was used for direct visualization and entry into the abdomen. At this point there was no evidence of pathology or trauma. A 2nd and 3rd left and right lower quadrant trocar site were placed after infiltration of quarter percent Marcaine under direct visualization with a 5 mm port on each side. The uterus was then elevated and the posterior cul-de-sac cleared of all small bowel. Visualization of both ovaries showed normal ovaries bilaterally. Surgical absence of her fallopian tubes bilaterally and a uterus that is midline and mobile with a 4 cm posterior fundal fibroid. At this point attention was turned to the left infundibulopelvic ligament which was cautery ligated and transected. Attention was then turned to the left round ligament which was cauter ligated and transected. This allowed for visualization of the broad ligament which was anterior and posterior leaf. The anterior leaf of the broad ligament was then incised to create the left half of the bladder flap. The left uterine vessels including uterine artery and vein were cautery ligated. At this point, attention was then turned to the right side where the right infundibulopelvic ligament was cautery ligated and then transected. Right lateral round ligament was cautery ligated and transected allowing separation of the broad ligament on the right. The anterior leaf of the broad ligament was then incised to complete the bladder flap. The bladder was pushed well down from the lower uterine segment. Right uterine vessels were then cauterized and ligated as well. At this point, attention was turned to the vaginal vault. Pneumoperitoneum released. Weighted speculum was placed into the posterior vaginal vault and the anterior and posterior lip of the cervix were grasped with Chayo clamps respectively. In a circumferential fashion at the cervical vaginal interface with Bovie cautery an incision was made. The posterior cul-de-sac was then entered sharply. Weighted speculum was placed into the posterior peritoneum. Attention was turned to the left uterosacral cardinal ligament complex which was then clamped transected and suture-ligated. Similar procedure carried out on the right uterosacral cardinal complex. In a systematic fashion Zeppelin clamps were used to clamp the uterine vessels on the left, followed by right. These were suture-ligated allowing delivery of the uterus, cervix, and bilateral ovaries through the vaginal cuff. Vaginal cuff was then closed using 0 Vicryl suture in a running locked fashion and noted to be hemostatic. There was 1 area where the vaginal mucosa was not in proximity which was then oversewn with a single stitch of 0 Vicryl suture. With completion of the closure of the vaginal cuff, attention was returned to the abdomen Pneumoperitoneum was recreated and the entire abdomen and pelvis visualized. In a systematic fashion inspection of the left infundibulopelvic ligament left uterine pedicle, vaginal cuff, right uterine pedicle and right infundibulopelvic ligament were all visualized and noted to be hemostatic. Ureters were appropriately pulsatile well out of the surgical field bilaterally. Pneumoperitoneum was then released to 5 mm of pressure and cuff and pedicles reinspected and noted to be hemostatic. At this point the abdominal portion of the procedure was terminated. Pneumoperitoneum completely released. Trocars removed from the abdomen. Fascial incision at the umbilicus closed using 0 Vicryl suture. Skin edge reapproximated with 4-0 undyed Monocryl suture and Steri-Strips and sterile dressings were placed. At this point cystoscopy was performed with instillation of normal saline into the bladder. The entirety of the bladder appeared smooth, regular, and without trauma or suture noted. Both ureteric orifice ease were noted to be patent with brisk jets of blue urine due to indigocarmine used intravascularly. Once assurance of bladder integrity and functioning ureters was achieved, bladder was drained and Rutledge catheter was replaced. The patient was then returned to the dorsal supine position and she woke from anesthesia without difficulty. She was taken to the postanesthesia care unit in stable condition with a Rutledge catheter draining blue-tinged urine. Findings: Normal-appearing uterus with 4 cm fundal fibroid. Absence of fallopian tubes bilaterally. Normal-appearing ovaries bilaterally. No evidence of intra-abdominal pathology or trauma. Normally functioning ureters bilaterally. Smooth regular bladder without trauma Complications: None apparent Pathology: Uterus and cervix and bilateral ovaries for examination Fluids: Crystalloid per anesthesia Blood loss: 400 mL. Date of Procedure: 11/02/24
[2024-11-02] MEDS: HYDROmorphone 2 MG/ML SYR IVP ×4 (11:01→11:33)
--- NOTE | 2024-11-02 13:02 | PHA.REVIEW2 ---
Pharmacy Admission Review Admission Clinical Review Admission Pharmacy Review: morphine Allergy (Severe, Verified 11/02/24 06:28) rash,hives, trouble breathing Resuscitation Status Full Code Height 5 ft 3 in Weight 60.3 kg Comments Comments/Follow Ups: POD #0 Laparoscopically assisted vaginal hysterectomy with bilateral salpingo-oophorectomy and cystoscopy Pharmacy Admission Review Renal Dosing Medications needing adjustments: Reviewed (CrCl 73.95 mL/min) Anticoagulation DVT Prophylaxis: Reviewed (SCDs) Opiate Usage Evaluate Pain Scale/Pains Meds: Reviewed (hydromorphone 1mg IVP q4h PRN - no doses given, hydromorphone 2mg PO q6h PRN - no doses given) Relevant Labs Electrolytes, C-Reactive P, ESR: Reviewed (No labs) Cardiac Review Cardiac Review: Blood Pressure 113/49 1252 Blood Pressure 106/56 1216 Blood Pressure 115/54 1154 Blood Pressure 100/51 1126 Blood Pressure 100/54 1121 Blood Pressure 104/61 1116 Blood Pressure 110/59 1111 Blood Pressure 115/53 1106 Blood Pressure 115/69 1101 Blood Pressure 111/73 1056 Blood Pressure 125/69 1051 Blood Pressure 114/57 1045 Blood Pressure 123/70 1040 Blood Pressure 122/73 1039 Blood Pressure 111/89 0638 BP, HR, EF%: Reviewed (HR WNL, oxygen flow rate = 2) QTc Review QTc: Reviewed (No EKG on file) IV to PO Switch IV Medications: Reviewed (hydromorphone, ketorolac and ondansetron) Home Meds Home Med List reviewed: Intervened Relevent Home Meds Not ordered & why?: clindamycin gel Changed tamoxifen to patients own order (non-formulary), reached out to nurse to see if patient can have this brought in. Waiting to hear back. Current Meds Current Medication Order Review: Reviewed Comments Comments/Follow Ups: POD #0 Laparoscopically assisted vaginal hysterectomy with bilateral salpingo-oophorectomy and cystoscopy
[2024-11-02] MEDS: Ketorolac 15 MG/ML VIAL IVP ×2 (14:29→20:49)
--- NOTE | 2024-11-02 14:48 | W.ANESPOSTOP ---
Postoperative Evaluation Date, Time and Location Date Performed: 11/02/24 Time Performed: 14:48 Patient Location: Med/Surg Vital Signs Most Recent Imported Vital Signs: Most Recent Vital Signs Temp Pulse Resp BP Pulse Ox 36.5 C 64 12 100/56 L 93 11/02/24 13:59 11/02/24 13:59 11/02/24 13:59 11/02/24 13:59 11/02/24 13:59 Pain Score Most Recent Pain Score: Most Recent Pain Score Pain Level 5 11/02/24 14:29 Assessment Mental Status: Awake (Alert & Oriented to Patient Baseline) Airway and Respiratory Function: Patent airway with normal (patient baseline) respiratory exam Cardiovascular Function: Hemodynamically Stable Hydration Status: Adequately Hydrated Nausea & Vomiting: No Nausea or Vomiting Pain: Pain is tolerable per patient Peripheral Nerve Block: Patient did not receive a nerve block
--- NOTE | 2024-11-02 15:36 | W.PM.PROGNOT ---
Date of Service Date of service: 11/02/24 Time of Service: 15:36 Assessment and Plan Assessment and plan (1) Status post laparoscopic assisted vaginal hysterectomy (LAVH): Status: Acute Assessment and plan: Postop day 0 status post laparoscopically assisted vaginal hysterectomy with bilateral salpingo-oophorectomy. Patient has a known history of multicentric breast cancer that is ER/MO positive. She also has a known uterine fibroid. She has been on tamoxifen therapy. Definitive pelvic clearance was performed today. I would anticipate an uncomplicated postoperative course with discharge home on 11/03/2024. Subjective Subjective Interval history since last seen: Patient seen postop day 0 status post laparoscopically assisted vaginal hysterectomy with bilateral salpingo-oophorectomy. She also had a prior cystoscopy. She is doing well this evening. Pain is reasonably well-controlled. Her vital signs are stable. Her urine output is appropriate. Her Rutledge catheter will be removed later this evening. She will increase her diet and liberalize her activity. If all things are stable, I would anticipate discharge home tomorrow Objective Last Vital Signs Temp 98.2 F 11/02/24 15:11 Pulse 60 11/02/24 14:52 Resp 12 11/02/24 13:59 BP 112/68 11/02/24 14:52 Pulse Ox 95 11/02/24 14:52 PAWSS Have you Been Recently Intoxicated or Drunk Within the Last 30 days?: No Have you Ever Experienced Previous Episodes of Alcohol Withdrawal?: No Have you ever Experienced Withdrawal Seizures?: No Have you ever Experienced Delirium Tremens(DT)s?: No Have you ever undergone Alcohol Rehabilitation Treatment (i.e, inpt ot outpatient treatment programs)?: No Have you ever Experienced Blackouts?: No Have you ever Combined Alcohol with other Downers within the last 90 days?: No Have you ever Combined Alcohol with any other Substance of Abuse during the last 90 days?: No Positive Blood Alcohol level on Presentation? [PCS.BAL]: No Evidence of Increased Autonomic Activity (i.e. HR>120, tremor, sweating, agitation, nausea)?: No Result: 0 Time Spent with Patient Time Spent with Patient: 25-34 minutes Time was spent: preparing to see the patient(eg.review tests), obtaining and/or reviewing separately [facility] hiistory, ordering medications,tests, procedures, referring, communicating with other health nonfarm animal caretaker and counseling the patient
[2024-11-02] MEDS: HYDROmorphone 2 MG/ML SYR 1 MG IVP (15:44)
[2024-11-02] MEDS: Gabapentin 300 MG CAP PO (20:42)
[2024-11-03] MEDS: HYDROmorphone 4 MG TAB 2 MG PO (00:08)
[2024-11-03] MEDS: Lactated Ringers 1,000 ML 125 ML IV (04:29)
[2024-11-03 07:15] LABS: HCT 32.1 % (36.0-46.0); HGB 10.9 g/dL (11.2-15.7); MCH 32.1 pg (27.0-33.0); MCHC 34.0 % (32.0-36.0); MCV 94 fL (80-95); MPV 10.0 fL (8.0-11.0); Platelet Count 302 10^3/uL (130-400); RBC 3.40 10^6/uL (3.93-5.22); RDW 11.7 % (11.7-14.6); RDW-SD 39.3 fL; WBC 10.44 10^3/uL (4.4-10.8)
[2024-11-03 07:24] VITALS: BP 111/58; PULSE 64; RESP 20; TEMP 36.7; O2SAT 95
[2024-11-03] MEDS: Escitalopram 20 MG TAB PO (07:44)
[2024-11-03] MEDS: Ketorolac 15 MG/ML VIAL IVP (07:44)
[2024-11-03 08:44] VITALS: RESP 16
--- NOTE | 2024-11-03 08:57 | W.NUTRFU ---
Date of service: 11/03/24 Time of Service: 08:57 Nutrition Note NOTE: Pt post op for hysterectomy. BMI wnl. nutrition related labs not of concern. Fair to good po intake noted. Anticipate d/c today home. Initial assessment puts pt at lower nutritional risk. will continue to follow labs, intake and remain available for any special dietary needs. Time Spent in Nutritional Counseling and Treatment: 0
[2024-11-03 09:00] VITALS: RESP 16; O2SAT 96
[2024-11-03 11:14] VITALS: BP 101/47; PULSE 65; RESP 22; TEMP 37.5; O2SAT 94
--- NOTE | 2024-11-03 11:18 | PGE_ITS ---
Date of Service Date of service: 11/03/24 Time of Service: 11:18 Assessment and Plan Assessment and plan (1) Status post laparoscopic assisted vaginal hysterectomy (LAVH): Status: Acute Assessment and plan: Postop day 1 status post laparoscopically assisted vaginal hysterectomy with bilateral salpingo-oophorectomy. Uncomplicated postoperative course. Discharged home today ambulating, tolerating regular diet well pain medication with stable vital signs. Prescription sent to the pharmacy. Follow-up with me in 2 and 6 weeks. Subjective Subjective Interval history since last seen: Patient seen this morning and reevaluated. She is postop day #1 status post laparoscopically assisted vaginal hysterectomy with bilateral salpingo- oophorectomy. She is doing well. Her vital signs are stable. Her urine output is appropriate. Hemoglobin is stable at 10.9. She has tolerated breakfast. She has been up out of bed once. She is voiding without difficulty. She will liberalize her activity in anticipation of discharge home today. Exam Const General: cooperative, healthy appearing, comfortable, no acute distress, well developed and well groomed [facility] Head: normal to inspection Eyes General: appearance normal, both eyes and all related structures Neck Neck: normal visual inspection, supple, no anterior neck swelling and nontender Resp Effort & Inspection: normal respiratory effort, no audible wheezes and no cough Cardio Rate: regular rate Rhythm: regular rhythm GI Inspection: normal to inspection, non-distended and incision Palpation: not firm and no guarding Skin General skin exam: no rashes or lesions noted Extrem General: normal to inspection, no clubbing, cyanosis or edema and no calf tenderness bilaterally Psych Appearance: grossly normal Mental Status: mental status grossly normal Speech and Movement: speech and movement normal Mood: congruent mood Insight: insight good Judgment: judgment good Objective Last Vital Signs Temp 99.5 F 11/03/24 11:14 Pulse 65 11/03/24 11:14 Resp 22 11/03/24 11:14 BP 101/47 L 11/03/24 11:14 Pulse Ox 94 11/03/24 11:14 Laboratory Results - last 24 hr 11/03/24 06:59 WBC 10.44 RBC 3.40 L Hgb 10.9 L Hct 32.1 L MCV 94 MCH 32.1 MCHC 34.0 RDW 11.7 Plt Count 302 MPV 10.0 PAWSS Have you Been Recently Intoxicated or Drunk Within the Last 30 days?: No Have you Ever Experienced Previous Episodes of Alcohol Withdrawal?: No Have you ever Experienced Withdrawal Seizures?: No Have you ever Experienced Delirium Tremens(DT)s?: No Have you ever undergone Alcohol Rehabilitation Treatment (i.e, inpt ot outpatient treatment programs)?: No Have you ever Experienced Blackouts?: No Have you ever Combined Alcohol with other Downers within the last 90 days?: No Have you ever Combined Alcohol with any other Substance of Abuse during the last 90 days?: No Positive Blood Alcohol level on Presentation? [PCS.BAL]: No Evidence of Increased Autonomic Activity (i.e. HR>120, tremor, sweating, agitation, nausea)?: No Result: 0 Time Spent with Patient Time Spent with Patient: 25-34 minutes Time was spent: preparing to see the patient(eg.review tests), obtaining and/or reviewing separately otained hiistory, ordering medications,tests, procedures, referring, communicating with other health housekeeper caregiver, indepentently interpreting results and counseling the patient
--- NOTE | 2024-11-03 11:20 | DSE_ITS ---
Date of service: 11/03/24 Time of Service: 11:20 DS: Diagnosis Discharge Diagnosis (1) Status post laparoscopic assisted vaginal hysterectomy (LAVH): Status: Acute Asessment and Plan: Postop day 1 status post laparoscopically assisted vaginal hysterectomy with bilateral salpingo-oophorectomy. Doing well. Discharge home today. Prescription sent to the pharmacy including Colace, ibuprofen, Dilaudid. Pathology is pending. Discharge Plan Disposition Patient Disposition: Home Condition: Good Discharge Details Reason For Visit: LAVH, BSO Admit Date/Time: 11/02/24 06:16 Admit Provider: Lucia Morrow Attending Provider: Lucia Morrow [facility] Course: Patient was admitted for laparoscopic-assisted vaginal hysterectomy with bilateral salpingo-oophorectomy due to uterine fibroid, bleeding, and history of ER/CA positive breast cancer. She underwent her procedure on 11/02/2024. She had appropriate qualitative blood loss with an appropriate drop in hemoglobin which was stable this morning at 10.9. She had uncomplicated postoperative course and was discharged home postoperative day #1 ambulating, tolerating regular diet all pain medication with stable vital signs. She will be seen back in the office in 2 and 6 weeks Home Meds and New Rx's Prescriptions: New ibuprofen 600 mg tablet 600 mg PO Q6H PRNQty: 90 1RF hydromorphone [Dilaudid] 2 mg tablet 2 mg PO Q6H PRNQty: 14 0RF docusate sodium [Colace] 100 mg capsule 100 mg PO BID Qty: 30 1RF No Action tamoxifen 20 mg tablet 20 mg PO DAILY gabapentin 300 mg capsule 300 mg PO QHS Qty: 90 3RF escitalopram oxalate 20 mg tablet 20 mg PO DAILY Qty: 90 3RF lorazepam 0.5 mg tablet 0.5 mg PO BID PRN (Reason: anxiety) Qty: 30 0RF Rx Instructions: Take 1 tablet twice a day as needed for anxiety clindamycin phosphate 1 % gel 1 applic TP BID Qty: 60 2RF ibuprofen 800 mg tablet 800 mg PO Q8H PRNQty: 60 1RF Patient Comments: pt. reports 400-600 mg albuterol sulfate [Ventolin HFA] 90 mcg/actuation Hfa Aerosol Inhaler 2 puff inhalation Q6H PRN PRNQty: 1 0RF Discharge Instructions Activity:: Pelvic rest, no heavy lif Equipment/Supplies:: No Equipment Needed Diet:: As Tolerated Discharge Orders Discharge Orders: Discharge Order (Routine); Ordered 11/03/24 Ordered By: Lucia Morrow DS: Summary Time Spent with Patient providing and/or coordinating discharge services: Greater than 30 minutes Status at Discharge Functional status at discharge: independent ambulation Overall status at discharge: patient is progressing back to baseline Mental Status: mental status grossly normal Speech and Movement: speech and movement normal Mood: congruent mood Affect: normal affect Exam Narrative Exam Narrative: See physical exam from progress note dated 11/03 24 Psych Mental Status: mental status grossly normal Speech and Movement: speech and movement normal Mood: congruent mood Affect: normal affect DS: Data Vitals/I&O Vitals and I&O: Vital Signs Temperature 99.5 F 11/03/24 11:14 Temperature Source Temporal Artery Scan 11/03/24 11:14 Pulse 65 11/03/24 11:14 Pulse Rhythm Regular 11/02/24 06:38 Pulse 61 11/02/24 11:26 Respiratory Rate 22 11/03/24 11:14 Respiratory Depth Normal 11/02/24 06:38 Blood Pressure 101/47 L 11/03/24 11:14 Blood Pressure Mean 65 11/03/24 11:14 Pulse Oximetry 94 11/03/24 11:14 Respiratory End-tidal CO2 31 11/02/24 11:26 Oxygen Delivery Method Room Air 11/03/24 07:24 Oxygen Flow Rate 0 11/03/24 07:24 Pain Level 5 11/03/24 11:14 Comment Right ankle BP- Notified RN 11/03/24 11:14 Intake & Output 11/02/24 11/02/24 11/03/24 11:59 23:59 11:59 Intake Total 950 / 2050 1100 / 2050 1000 / 1000 Output Total 540 / 640 100 / 640 1525 / 1525 Balance 410 / 1410 1000 / 1410 -525 / -525 Weight 132 lb 15.02 oz Intake: IV 950 / 2050 1100 / 2050 1000 / 1000 Output: Urine 400 / 500 100 / 500 1525 / 1525 Estimated Blood Loss 140 / 140 Other: Urine Color Indigo Indigo Yellow Urine Appearance Clear Cloudy Clear Urine Odor None Comment post op Emesis Description None Data Completed and Pending Labs on day of discharge: Labs from last 24 hours 11/03/24 06:59 WBC 10.44 RBC 3.40 L Hgb 10.9 L Hct 32.1 L MCV 94 MCH 32.1 MCHC 34.0 RDW 11.7 Plt Count 302 MPV 10.0 PFSH All Active Problems Status post laparoscopic assisted vaginal hysterectomy (LAVH) (Acute) With bilateral salpingo-oophorectomy. 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 S/p bilateral mastectomy. [place] [facility] [place] calculi Hx of abnormal cervical Pap smear Surgical History (Updated 11/02/24 @ 15:37 by Lucia Morrow DO) History of cystoscopy with lithrotrispy S/P breast reconstruction, bilateral (12/03/21) Revision 01/28/23 History of colonoscopy (09/16/22) S/P bilateral mastectomy (12/03/21) History of bilateral tubal ligation Family History Mother No problems noted. Father , of alcohol induced liver failure Prostate cancer Alcohol use disorder Liver disease Diabetes Brother No problems noted. Daughter Depression Daughter No problems noted. Daughter No problems noted. Daughter No problems noted. Maternal Grandfather No problems noted. Maternal Grandmother Dementia Paternal Grandfather Diabetes Paternal Grandmother Diabetes Social History Smoking/Tobacco Use Status: Never Second Hand Exposure: No Smoking risk assessment performed?: Yes Alcohol Intake: current Alcohol Intake frequency: a few times a month Alcohol type: hard liquor Drug use: Never Substance use type: does not use Details: alcohol: t-1, 2 drinks Household members: spouse, family and children Housing: house Communication Needs: None Do you need help understanding health information?: Never Pets and animals: Yes Pets and animals: dog(s) Sexually active: Yes Do you think of yourself as: straight/heterosexual Current gender identity: female What is your relationship status?: How often do you talk on the phone with friends or family?: once per week How often do you get together with friends or relatives?: once per week How often do you attend oriental orthodox or baptist services?: decline to answer Panel score (0-1 are the most socially isolated patients): 1 What type of physical activity do you participate in: walking, other Details: Basketball,Hike and running Duration: 30-45 minutes/day Frequency: 5-6 times per week Do you feel safe at home: Yes Do you feel safe in your relationship?: Yes Additional Social history: [employer] Female Reproductive History Menstrual control method: permanent sterilization History History Para 4 Hx # Term Pregnancies Multiple births Hx # Pregnancies Ectopic pregnancies AB induced Hx Number of Living Children AB spontaneous Time Spent with Patient Time Spent with Patient: <45 minutes Time was spent: preparing to see the patient(eg.review tests), obtaining and/or reviewing separately otained hiistory, ordering medications,tests, procedures, referring, communicating with other health infant caregiver and indepentently interpreting results
--- NOTE | 2024-11-03 14:31 | CHAPLAIN ---
Noemy was resting in bed when I visited. She is expecting to go home today or tomorrow, with family visiting later today. 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
--- NOTE | 2024-11-03 15:59 | PDOC.CMPRO ---
Date of service: 11/03/24 Time of Service: 15:59 Care Management Progress Note Progress Note Text Progress Note Text: Noemy was admitted on 11/02/24 for an LAVH with bilateral S/O. The procedure went well and Noemy had an uncomplicated post-operative course. She was ambulating and tolerating a regular diet this morning and was able to be discharged home with no new services. Social Determinants of Health Screening Social Determinants of health last assessed in clinic: 11/03/24 Will the Patient Participate in the Screening?: Yes Do you worry about having a steady place to live?: no Problems where you live: no known problems In the past 12 months, have you had to go without electric, gas, oil or water in your home?: no 1. Within the past 12 months, we worried whether our food would run out before we got money to buy more.: Never true 2. Within the past 12 months, the food we bought just didn't last and we didn't have money to get more.: Never true Has lack of transportation kept you from medical appointments or from doing things needed for daily living?: no Has anyone in your life made you feel unsafe or unsupported?: no How hard is it for you to pay for the very basics like food, housing, medical care, and heating? Would you say it is:: Not hard at all Do you want help finding or keeping work or a job?: I do not need or want help If for any reason you need help with day-to-day activities such as bathing, preparing meals, shopping, managing finances, etc., do you get the help you need?: I don?t need any help How often do you feel lonely or isolated from those around you?: Never Do you speak a language other than [place] at home?: No Does the patient want assistance with any of the above?: No
== END 2024-11-03 15:05 | disposition home or self-care (01) ==
LOC: PDS 12:05 → MS 12:05
PROVIDERS: Admitting Provider Obstetrics & Gynecology; PCP Nurse Practitioner Family; Visit Provider Obstetrics & Gynecology
PROC: 0UT9FZZ Resection of Uterus, Via Natural or Artificial Opening With Percutaneous Endoscopic Assistance (ICD-10-PCS; CPT 58552; principal; 2024-11-02 07:30)
DX: N92.0 Excessive and frequent menstruation with regular cycle (principal); D25.1 Intramural leiomyoma of uterus; R10.2 Pelvic and perineal pain; C50.911 Malignant neoplasm of unspecified site of right female breast; Z17.0 Estrogen receptor positive status [ER+]; Z17.21 Progesterone receptor positive status; Z17.32 Human epidermal growth factor receptor 2 negative status; Z79.899 Other long term (current) drug therapy; Z90.13 Acquired absence of bilateral breasts and nipples; F41.1 Generalized anxiety disorder
CPT/HCPCS: 58552; 00123; 36415; 85027; 96361; 96374; 96375; 96376; 88307; J0131; J0665; J0690; J1100; J1171; J1885; J2003; J2250; J2405; J2704; J3010